=== PATIENT | male | born 1940 | race Caucasian/White ===

== ENCOUNTER 2018-12-02 11:06 | Inpatient (IN) | payer BC, MEDICARE ==
[2018-12-02] MEDS ORDERED: ALPRAZolam 0.5 MG TAB PO PRN ×2 (14:13→15:48)
[2018-12-02] MEDS ORDERED: IPRATROPIUM-ALBUTEROL 3 ML NEB INHALATION PRN (14:13)
[2018-12-02 15:31] LABS: Basophils % (A) 1 %; Eosinophils # (A) 0.2 k/uL (0-0.7); Eosinophils % (A) 5 %; HCT 37.3 % (39.0-53.0); HGB 12.4 gm/dL (13.0-17.5); Lymphocytes # (A) 0.6 k/uL (1.0-4.8); Lymphocytes % (A) 16 %; MCH 30.8 pg (25.0-35.0); MCHC 33.3 g/dL (31.0-37.0); MCV 92.4 fL (80.0-100.0); Monocytes # (A) 0.2 k/uL (0-1.0); Monocytes % (A) 6 %; Neutrophils # (A) 2.9 k/uL (1.3-7.7); Neutrophils % (A) 71 %; Platelet Count 181 k/uL (150-450); RBC 4.03 m/uL (4.30-5.90); RDW 13.4 % (11.5-15.5); WBC 4.1 k/uL (3.8-10.6)
[2018-12-02] MEDS: ASPIRIN 81 MG PO SCH (15:37)
[2018-12-02] MEDS: LOSARTAN 25 MG TAB PO SCH (15:37)
[2018-12-02] MEDS: NITROGLYCERIN OINT 1 INCH/GM PACKET TOPICAL SCH ×2 (15:37→23:31)
[2018-12-02] MEDS: CITALOPRAM HYDROBROMIDE 10 MG TAB PO SCH (15:37)
[2018-12-02] MEDS: FUROSEMIDE 40 MG TAB PO SCH (15:37)
[2018-12-02 15:39] LABS: Calcium 9.8 mg/dL (8.4-10.2); Magnesium 1.7 mg/dL (1.6-2.3); Potassium 3.7 mmol/L (3.5-5.1)
--- NOTE | 2018-12-02 15:39 | P.CRDCN ---
History of Present Illness Consult date: 12/02/18 Requesting physician: Olga Iraheta Consult reason: chest pain Chief complaint: Chest pain History of present illness: This is a pleasant 78-year-old gentleman who follows regularly with Dr. Coulter in the office. He has a known history of coronary artery disease with prior stent placement, hypertension, hyperlipidemia, COPD, history of prior prostate cancer. Most recent cardiac catheterization was performed in 2017 which revealed moderate disease in the proximal LAD, no significant hemodynamically obstructive lesion in the proximal LAD by FFR performed at that time. He was also found to have mild to moderate disease in the circumflex and right coronary artery stent was patent at that time. Patient presented to [facility] with symptoms of left-sided chest discomfort which she describes as an ache in his chest. He does get some mild associated nausea with this, he states that the symptoms, and go. Each time lasting approximately 10 minutes in duration. He had 2 troponins drawn at [facility] which came back to be normal. For this reason was advised to undergo stress test. He did have Nitropaste applied on arrival there which she states helped relieve the symptoms. The Nitropaste was then removed prior to going to stress test and patient again develop symptoms. For this reason the stress test was canceled. They did make a phone call at that time to Dr. Coulter who recommended that the patient be transferred here for further evaluation and treatment. We do not have a copy of the EKG performed at [facility]. We will obtain an EKG here. Upon arrival here, patient did have one episode of chest discomfort, at the time of my examination he is currently chest pain-free. Blood pressure at [facility] 153/62 with a heart rate in the 50s 98% on room air. His white blood cell count was 4.4, hemoglobin 12.3, platelets 187. BUN 17, creatinine 1.3, sodium 141, potassium 3.4, magnesium 1.1 and CO2 27. Chest x-ray showed chronic changes without evidence of acute pulmonary disease. Blood pressure here 145/60 with a heart rate in the 70s, 93% on room air. Past Medical History Past Medical History: Coronary Artery Disease (CAD), Cancer, Chest Pain / Angina , COPD, Diabetes Mellitus, Hyperlipidemia, Myocardial Infarction ([place]) Additional Past Medical History / Comment(s): Prostate cancer with hormone tx/ radiation, L testicular cancer with surgery, NIDDM type II, neuropathy bilateral feet and starting in bilateral hands, vertigo, possible elevated uric acid levels. Last Myocardial Infarction Date:: 10/17/14 History of Any Multi-Drug Resistant Organisms: None Reported Past Surgical History: Heart Catheterization With Stent, Orthopedic Surgery Additional Past Surgical History / Comment(s): 2014 PCI with stent, 2016 cardiac cath treated medically, L orchiectomy, L rotator cuff repair, colonoscopies-3 in past year d/t multiple polyps-all bening, bilateral cataract removal. Past Anesthesia/Blood Transfusion Reactions: No Reported Reaction Date of Last Stent Placement:: 10/18/14 Past Psychological History: No Psychological Hx Reported Additional Psychological History / Comment(s): Pt resides with his spouse of 30 yrs. He is independent. He has a glucometer and a nebulizer. Smoking Status: Former smoker Past Alcohol Use History: Occasional Additional Past Alcohol Use History / Comment(s): Pt started smoking in 1956 and quit in 1990. He states he drinks alcohol sometimes on a daily basis. He states some weeks he may go over 14 drinks. Past Drug Use History: None Reported - Past Family History Brother(s) Family Medical History: Cancer Son(s) Family Medical History: Cancer Additional Family Medical History / Comment(s): Lung Ca and Brain tumor Mother Family Medical History: Dementia Father Family Medical History: Cancer, Dementia Additional Family Medical History / Comment(s): Father had lung cancer. He in his 80s. He was a smoker. Medications and Allergies Home Medications Medication Instructions Recorded Confirmed Type ALPRAZolam [Xanax] 0.5 mg PO BID PRN 07/14/17 12/02/18 History Aspirin 81 mg PO DAILY 07/14/17 12/02/18 History Atorvastatin [Lipitor] 80 mg PO HS 07/14/17 12/02/18 History Budesonide-Formot 160-4.5 Mcg 2 puff INHALATION RT-BID 07/14/17 12/02/18 History [Symbicort 160-4.5 Mcg Inhaler] Ipratropium-Albuterol Nebulize 3 ml INHALATION RT-Q4H PRN 07/14/17 12/02/18 History [Duoneb 0.5 mg-3 mg/3 ml Soln] Losartan Potassium [Cozaar] 25 mg PO DAILY 10/01/17 02/19/19 History Metoprolol Tartrate [Lopressor] 12.5 mg PO BID 07/14/17 12/02/18 History Omeprazole [PriLOSEC] 20 mg PO DAILY 07/14/17 12/02/18 History metFORMIN HCL [Glucophage] 500 mg PO BID 07/14/17 12/02/18 History Allopurinol [Zyloprim] 100 mg PO DAILY 12/02/18 12/02/18 History Citalopram Hydrobromide 10 mg PO DAILY 12/02/18 12/02/18 History [Citalopram HBr] Furosemide [Lasix] 40 mg PO DAILY 12/02/18 12/02/18 History Glimepiride [Amaryl] 2 mg PO BID 12/02/18 12/02/18 History Allergies Allergy/AdvReac Type Severity Reaction Status Date / Time No Known Allergies Allergy Verified 12/02/18 13:50 Physical Exam Vitals: Vital Signs Temp Pulse Resp BP Pulse Ox 12/02/18 15:27 72 18 12/02/18 15: 96.5 F L 72 18 145/66 93 L 12/02/18 12:40 97.0 F L 62 18 172/79 96 Intake and Output 12/02/18 12/02/18 12/02/18 06:59 14:59 22:59 Other: Weight 97.5 kg PHYSICAL EXAMINATION: GENERAL: 78-year-old gentleman in no acute distress at the time of my examination HEENT: Head is atraumatic, normocephalic. Pupils equal, round. Sclera anicteric. Conjunctiva are clear. Mucous membranes of the mouth are moist. Neck is supple. There is no elevated jugular venous pressure. No carotid bruit is heard. HEART EXAMINATION: Heart S1, S2 normal. No murmur or gallop heard. CHEST EXAMINATION: Lungs are clear to auscultation and precussion. No chest wall tenderness is noted on palpation or with deep breathing. ABDOMEN: Soft, nontender. Bowel sounds are heard. No organomegaly noted. EXTREMITIES: 2+ peripheral pulses with no evidence of peripheral edema and no calf tenderness noted. NEUROLOGIC patient is awake, alert and oriented 3 . . Results 12/02/18 15:11 12/02/18 15:11 Current Medications Generic Name Dose Route Start Last Admin Trade Name Freq PRN Reason Stop Dose Admin Albuterol/Ipratropium 3 ml 12/02/18 14:13 Duoneb 0.5 Mg-3 Mg/3 Ml Soln INHALATION RT-Q4H PRN Shortness Of Breath Or Wheezing Allopurinol 100 mg 12/03/18 09:00 Zyloprim PO DAILY [facility] Alprazolam 0.5 mg 12/02/18 14:13 Xanax PO BID PRN Anxiety Aspirin 81 mg 12/02/18 14:30 Aspirin PO DAILY [facility] Atorvastatin Calcium 80 mg 12/02/18 21:00 Lipitor PO HS [facility] Budesonide/Formoterol Fumarate 2 puff 12/02/18 20:00 Symbicort 160-4.5 Mcg Inhaler INHALATION RT-BID [facility] Citalopram Hydrobromide 10 mg 12/02/18 14:30 Celexa PO DAILY [facility] Furosemide 40 mg 12/02/18 14:30 Lasix PO DAILY [facility] Glimepiride 2 mg 12/02/18 21:00 Amaryl PO BID [facility] Losartan Potassium 25 mg 12/02/18 14:30 Cozaar PO DAILY [facility] Metformin HCl 500 mg 12/02/18 21:00 Glucophage PO BID [facility] Metoprolol Tartrate 12.5 mg 12/02/18 21:00 Lopressor PO BID [facility] Nitroglycerin 1 inch 12/02/18 16:00 Nitro-Bid Oint TOPICAL Q6HR [facility] Pantoprazole Sodium 40 mg 12/03/18 07:30 Protonix PO AC-BRKFST [facility] Intake and Output 12/02/18 12/02/18 12/02/18 06:59 14:59 22:59 Other: Weight 97.5 kg Patient Weight 12/03/18 06:59 Weight 97.5 kg EKG Interpretations (text) EKG that was performed here shows normal sinus rhythm with anterior lateral ST- T wave changes noted. New changes as compared with EKG in 2017. Assessment and Plan Plan: Assessment and plan #1 symptoms of chest discomfort with associated mild nausea, troponins 2 at [facility] have been negative. EKG performed here shows normal sinus rhythm with ST depression and ST-T wave changes in the anterior lateral leads from prior EKG. #2 known history of coronary artery disease with prior stenting of the right coronary artery in 2015, cardiac cath performed in 2017 revealed moderate disease in the proximal LAD, not significant by FFR, mild to moderate disease in the circumflex, RCA prior stented area patent. #3 hypertension #4 hyperlipidemia #5COPD #6 history of prostate cancer #7 hypomagnesemia Plan We will obtain an EKG here as well as record of one of [facility]. Obtain echocardiogram with Doppler study and resume the patient's home medications. Obtain a third troponin value. Patient has been advised to undergo cardiac catheterization, the risks and benefits were explained to the patient in detail and he is willing to proceed. This will be performed tomorrow by Dr. Coulter. Further recommendations will be based on these findings and the patient's clinical course. DNP note has been reviewed, I agree with a documented findings and plan of care. Patient was seen and examined.
[2018-12-02] MEDS ORDERED: SODIUM CHLORIDE 0.9% 1,000 ML in EMPTY BAG 1 BAG IV ONE (15:48)
[2018-12-02] MEDS ORDERED: ALPRAZolam 0.25 MG TAB PO PRN (15:48)
[2018-12-02] MEDS ORDERED: NITROGLYCERIN SL TABS 0.4 MG TAB SUBLINGUAL PRN (15:48)
[2018-12-02] MEDS ORDERED: HEPARIN SODIUM,PORCINE 5,000 UNIT/ML 1 ML VIAL IV ONE (15:54)
[2018-12-02] MEDS ORDERED: HEPARIN SODIUM,PORCINE 5,000 UNIT/ML 1 ML VIAL IV PRN (15:54)
[2018-12-02] MEDS ORDERED: HEPARIN SOD,PORK IN 0.45% NACL 25,000 UNIT in 0.45% NACL 1 250ML.BAG IV SCH (16:00)
[2018-12-02 17:01] LABS: Basophils % (A) 1 %; Eosinophils # (A) 0.2 k/uL (0-0.7); Eosinophils % (A) 4 %; HCT 35.8 % (39.0-53.0); Lymphocytes # (A) 0.8 k/uL (1.0-4.8); Lymphocytes % (A) 18 %; MCH 30.9 pg (25.0-35.0); MCHC 33.5 g/dL (31.0-37.0); MCV 92.3 fL (80.0-100.0); Mean Platelet Volume 6.3; Monocytes # (A) 0.3 k/uL (0-1.0); Monocytes % (A) 8 %; Neutrophils # (A) 2.9 k/uL (1.3-7.7); Neutrophils % (A) 68 %; Platelet Count 170 k/uL (150-450); RBC 3.88 m/uL (4.30-5.90); RDW 13.5 % (11.5-15.5); WBC 4.3 k/uL (3.8-10.6)
[2018-12-02] MEDS ORDERED: ONDANSETRON 4 MG/2 ML VIAL IVP PRN (17:05)
[2018-12-02] MEDS ORDERED: NALOXONE 0.4 MG/ML 1 ML VIAL IV PRN (17:05)
[2018-12-02 17:09] LABS: Glucose,Whole Blood 131 mg/dL (75-99)
[2018-12-02 17:12] LABS: INR 0.9 (<1.2); Partial Thromboplastin Time 22.8 sec (22.0-30.0); Prothrombin Time 10.1 sec (9.0-12.0)
--- NOTE | 2018-12-02 17:21 | P.HPIM ---
History of Present Illness H&P Date: 12/02/18 Chief Complaint: Chest pain Patient is a 78-year-old male past medical history of prior myocardial infarction with 1 stent, hypertension, dyslipidemia, diabetes mellitus, and COPD who was transferred from [facility] secondary to chest pain. Patient had been having chest pain for 2 days and presented to [facility]. There he was found have an EKG that was nonischemic and negative troponins. He had Nitropaste placed which took away his chest pain. He states that when this was removed his chest pain came back. He was subsequently transferred here for further cardiac evaluation. Laboratory analysis there revealed white blood cell count of 4.43, hemoglobin 12.3, platelets 187, BUN 17 , creatinine 131, sodium 141, potassium 3.4, magnesium 1.1. Chest x-ray reveals chronic COPD but no other changes. Patient seen and examined at bedside. He reports that for 2 days prior to admission he was having intermittent chest pain. He described it as an irritating pressure associated with nausea and severe diaphoresis. He also noted tingling in his fingers. He denies any increased shortness of breath occurring with this. He states it has been occurring both at rest and with exertion. He hasn't had anything significant in the past. He reports a decreased appetite over the last 2-3 weeks resulting in a 20 pound weight loss. He has noticed increased restlessness in his legs at night and having a hard time sleeping. Approximately 6 months ago he started having some lower extremity edema and was put on Lasix by his linux vmware administrator. He denies any recent cough, cold, fever, flu, nausea, vomiting, or diarrhea. Review of Systems Pertinent positives and negatives as discussed in HPI, a complete review of systems was performed and all other systems are negative. Past Medical History Past Medical History: Coronary Artery Disease (CAD), Cancer, Chest Pain / Angina , COPD, Diabetes Mellitus, Hyperlipidemia, Myocardial Infarction ([place]) Additional Past Medical History / Comment(s): Prostate cancer with hormone tx/ radiation, L testicular cancer with radiation/surgery, NIDDM type II, neuropathy bilateral feet and starting in bilateral hands, vertigo, Gout. Last Myocardial Infarction Date:: 10/17/14 History of Any Multi-Drug Resistant Organisms: None Reported Past Surgical History: Heart Catheterization With Stent, Orthopedic Surgery Additional Past Surgical History / Comment(s): 2014 PCI with stent, 2016 cardiac cath treated medically, L orchiectomy, L rotator cuff repair, colonoscopies-3 in past year d/t multiple polyps-all bening, bilateral cataract removal. Past Anesthesia/Blood Transfusion Reactions: No Reported Reaction Date of Last Stent Placement:: 10/18/14 Past Psychological History: No Psychological Hx Reported Additional Psychological History / Comment(s): Pt resides with his spouse of 30 yrs. He is independent. He has a glucometer and a nebulizer. Smoking Status: Former smoker Past Alcohol Use History: Occasional Additional Past Alcohol Use History / Comment(s): Pt started smoking in 1956 and quit in 1990. He states he drinks alcohol sometimes on a daily basis. He states some weeks he may go over 14 drinks. Past Drug Use History: None Reported Additional History: Has not had any alcohol in 2 weeks. Lives with . No assistive devices. + Nebulizer at home. - Past Family History Brother(s) Family Medical History: Cancer Son(s) Family Medical History: Cancer Additional Family Medical History / Comment(s): Lung Ca and Brain tumor Mother Family Medical History: Dementia Father Family Medical History: Cancer, Dementia Additional Family Medical History / Comment(s): Father had lung cancer. He in his 80s. He was a smoker. Medications and Allergies Home Medications Medication Instructions Recorded Confirmed Type ALPRAZolam [Xanax] 0.5 mg PO BID PRN 07/14/17 12/02/18 History Aspirin 81 mg PO DAILY 07/14/17 12/02/18 History Atorvastatin [Lipitor] 80 mg PO HS 07/14/17 12/02/18 History Losartan Potassium [Cozaar] 25 mg PO DAILY 07/14/17 12/02/18 History Metoprolol Tartrate [Lopressor] 12.5 mg PO BID 07/14/17 12/02/18 History Omeprazole [PriLOSEC] 20 mg PO DAILY 07/14/17 12/02/18 History metFORMIN HCL [Glucophage] 500 mg PO BID 07/14/17 12/02/18 History Allopurinol [Zyloprim] 100 mg PO DAILY 12/02/18 12/02/18 History Budesonide [Pulmicort] 0.5 mg INHALATION BID 12/02/18 12/02/18 History Citalopram Hydrobromide 10 mg PO DAILY 12/02/18 12/02/18 History [Citalopram HBr] Formoterol Fumarate [Perforomist] 20 mcg INHALATION BID 12/02/18 12/02/18 History Furosemide [Lasix] 40 mg PO DAILY 12/02/18 12/02/18 History Glimepiride [Amaryl] 2 mg PO BID 12/02/18 12/02/18 History Allergies Allergy/AdvReac Type Severity Reaction Status Date / Time No Known Allergies Allergy Verified 12/02/18 13:50 Physical Exam Osteopathic Statement: *. No significant issues noted on an osteopathic structural exam other than those noted in the History and Physical/Consult. Vitals: Vital Signs Temp Pulse Pulse Resp BP Pulse Ox 12/02/18 16:17 72 12/02/18 16:11 72 12/02/18 15:27 72 18 12/02/18 15:19 96.5 F L 72 18 145/66 93 L 12/02/18 12:40 97.0 F L 62 18 172/79 96 Intake and Output 12/02/18 12/02/18 12/02/18 06:59 14:59 22:59 Other: Weight 97.5 kg 97.5 kg General: non toxic, no distress, appears at stated age, normal weight Derm: no unusual rashes/lesions no unusual ecchymoses, warm, dry Head: atraumatic, normocephalic, symmetric Eyes: EOMI, no lid lag, anicteric sclera, pupils equal round reactive to light ENT: Nose and ears atraumatic, no thrush, no pharyngeal erythema Neck: No thyromegaly, no cervical lymphadenopathy, trachea midline, supple Mouth: no lip lesion, mucus membranes moist Cardiovascular: S1S2 reg, no murmur, positive posterior tibial pulse bilateral, no edema, capillary refill less than 2 seconds Lungs: CTA bilateral, no rhonchi, no rales , no accessory muscle use Abdominal: soft, nontender to palpation, no guarding, no appreciable organomegaly, normal bowel sounds Ext: no gross muscle atrophy, muscle strength 5 out of 5 in all 4 extremities grossly, no contractures, Neuro: CN II-XI grossly intact, light touch intact all 4 extremities, finger to nose within normal limits, Psych: Alert, oriented, appropriate affect Results CBC & Chem 7: 12/02/18 16:36 12/02/18 15:11 Labs: Abnormal Lab Results - Last 24 Hours (Table) 12/02/18 12/02/18 12/02/18 Range/Units 15:11 15:11 16:36 RBC 4.03 L 3.88 L (4.30-5.90) m/uL Hgb 12.4 L 12.0 L (13.0-17.5) gm/dL Hct 37.3 L 35.8 L (39.0-53.0) % Lymphocytes # 0.6 L 0.8 L (1.0-4.8) k/uL Glucose 149 H (74-99) mg/dL Comments: EKG is reviewed by myself reveals normal sinus rhythm at a rate of 72 with T- wave inversion in lead V1 through V6 consistent with possible anterior ischemia. Chest x-ray: report reviewed Thrombosis Risk Factor Assmnt - DVT/VTE Prophylaxis DVT/VTE Prophylaxis: Pharmacologic Prophylaxis ordered - Choose All That Apply Any of the Below Risk Factors Present?: Yes Each Factor Represents 1 point: Abnormal pulmonary function (COPD), Obesity ( BMI >25) Other Risk Factors: Yes Each Risk Factor Represents 2 Points: Malignancy Each Risk Factor Represents 3 Points: Age 75 years or older Other congenital or acquired thrombophilia - If yes, enter type in comment: No Thrombosis Risk Factor Assessment Total Risk Factor Score: 7 Thrombosis Risk Factor Assessment Level: High Risk Assessment and Plan Assessment: Chest pain with concerns for acute coronary syndrome and history of coronary artery disease -Check one additional troponin -Telemetry -On heparin drip -Cardiology recommendations -Nothing by mouth after midnight -Continue with aspirin, Lipitor, and beta colette Diabetes mellitus type 2, [id number] associated with neuropathy -Hold metformin and glimepiride -Sliding-scale insulin -Check hemoglobin A1c Restless leg syndrome -Check ferritin level -Outpatient follow-up Hypomagnesemia -Replaced at [facility] -Recheck Hypertension, controlled -Continue with beta colette, ARB, and Lasix -Follow blood pressures COPD without exacerbation -Continue with budesonide and Pulmicort -As needed albuterol inhalers -Follows with Dr. Meade for pulmonary The patient is admitted with an anticipated greater than 2 midnight stay for evaluation of chest pain. Surrogate decision-maker: CODE STATUS: Full DVT prophylaxis: heparin drip Discussed with: Patient, nursing Anticipated discharge date: 2-[address]: Home A total of 5 minutes was spent on the care of this complex patient more than 50 % of the time was spent in counseling and care coordination.
[2018-12-02] MEDS: INSULIN ASPART (NovoLOG) 100 UNIT/ML VIAL SQ SCH ×2 (18:15→21:50)
[2018-12-02] MEDS: METOPROLOL TARTRATE 12.5 MG TAB PO SCH (19:37)
[2018-12-02] MEDS: ATORVASTATIN 80 MG TAB PO SCH (19:37)
[2018-12-02] MEDS: ALBUTEROL NEBULIZED 2.5 MG/3 ML INHALATION PRN (19:47)
[2018-12-02] MEDS: BUDESONIDE 0.5 MG/2 ML NEBU INHALATION SCH (19:47)
[2018-12-02] MEDS ORDERED: SYMBICORT 160-4.5 MCG INHALER INHALATION SCH (20:00)
[2018-12-02] MEDS: FORMOTEROL FUMARATE 20 MCG/2 ML NEBU INHALATION SCH (20:01)
[2018-12-02] MEDS ORDERED: metFORMIN 500 MG TAB PO SCH (21:00)
[2018-12-02] MEDS ORDERED: GLIMEPIRIDE 2 MG TAB PO SCH (21:00)
[2018-12-02 21:31] LABS: Glucose,Whole Blood 124 mg/dL (75-99)
[2018-12-03 01:23] LABS: Hemoglobin A1C 7.3 % (4.0-6.0)
[2018-12-03] MEDS ORDERED: ATORVASTATIN 80 MG TAB PO ONE (06:00)
[2018-12-03] MEDS ORDERED: ASPIRIN 325 MG TAB PO ONE (06:00)
[2018-12-03 06:13] LABS: Glucose,Whole Blood 161 mg/dL (75-99)
[2018-12-03 06:18] LABS: Basophils % (A) 1 %; Eosinophils # (A) 0.2 k/uL (0-0.7); Eosinophils % (A) 4 %; HCT 35.9 % (39.0-53.0); HGB 11.7 gm/dL (13.0-17.5); Lymphocytes # (A) 0.7 k/uL (1.0-4.8); Lymphocytes % (A) 19 %; MCH 30.7 pg (25.0-35.0); MCHC 32.7 g/dL (31.0-37.0); Mean Platelet Volume 6.7; Monocytes # (A) 0.3 k/uL (0-1.0); Monocytes % (A) 8 %; Neutrophils # (A) 2.5 k/uL (1.3-7.7); Neutrophils % (A) 65 %; Platelet Count 160 k/uL (150-450); RBC 3.82 m/uL (4.30-5.90); RDW 13.5 % (11.5-15.5); WBC 3.9 k/uL (3.8-10.6)
[2018-12-03 06:29] LABS: Calcium 9.4 mg/dL (8.4-10.2); Magnesium 1.7 mg/dL (1.6-2.3); Potassium 3.9 mmol/L (3.5-5.1)
[2018-12-03] MEDS: ALLOPURINOL 100 MG TAB PO SCH (06:39)
[2018-12-03] MEDS: LOSARTAN 25 MG TAB PO SCH (06:40)
[2018-12-03] MEDS: PANTOPRAZOLE 40 MG TABLET PO SCH (06:40)
[2018-12-03] MEDS: METOPROLOL TARTRATE 12.5 MG TAB PO SCH ×2 (06:40→19:48)
[2018-12-03] MEDS: NITROGLYCERIN OINT 1 INCH/GM PACKET TOPICAL SCH ×2 (06:41→12:20)
[2018-12-03] MEDS: INSULIN ASPART (NovoLOG) 100 UNIT/ML VIAL SQ SCH ×4 (06:41→21:16)
[2018-12-03] MEDS: ASPIRIN 81 MG PO SCH (07:34)
[2018-12-03] MEDS: BUDESONIDE 0.5 MG/2 ML NEBU INHALATION SCH ×2 (07:47→20:00)
[2018-12-03] MEDS: ALBUTEROL NEBULIZED 2.5 MG/3 ML INHALATION PRN ×3 (07:47→20:00)
[2018-12-03] MEDS: FORMOTEROL FUMARATE 20 MCG/2 ML NEBU INHALATION SCH ×2 (07:47→20:00)
[2018-12-03] MEDS: CITALOPRAM HYDROBROMIDE 10 MG TAB PO SCH (10:09)
[2018-12-03 11:06] LABS: Iron Saturation 12.16 (15.00-50.00)
[2018-12-03 11:54] LABS: Glucose,Whole Blood 128 mg/dL (75-99)
[2018-12-03] MEDS ORDERED: VERAPAMIL 2.5 MG/ML 2 ML AMP ONE (13:03)
[2018-12-03] MEDS ORDERED: LIDOCAINE 1% INJ 10MG/ML (20 ML MDV) ONE (13:03)
[2018-12-03] MEDS ORDERED: HEPARIN SODIUM 1,000 UN/ML (10ML VL) ONE (13:03)
[2018-12-03] MEDS ORDERED: fentaNYL (PF) 50 MCG/ML 2 ML AMP ONE (13:03)
[2018-12-03] MEDS ORDERED: IV FLUID CONTINUATION 200 ML IV ONE (13:08)
[2018-12-03] MEDS ORDERED: LIDOCAINE 1% INJ 10MG/ML (20 ML MDV) SQ ONE (13:17)
[2018-12-03] MEDS ORDERED: MIDAZOLAM 2 MG/2 ML VIAL IVP ONE (13:18)
[2018-12-03] MEDS ORDERED: fentaNYL (PF) 50 MCG/ML 2 ML AMP IVP ONE (13:18)
[2018-12-03] MEDS ORDERED: VERAPAMIL SYRINGE (5 MG/10 ML) INTRAARTER ONE (13:23)
[2018-12-03] MEDS ORDERED: IOPAMIDOL-370 150ML BTL INJ ONE (13:34)
[2018-12-03] MEDS ORDERED: HEPARIN SODIUM 1,000 UN/ML (10ML VL) IV ONE (13:34)
[2018-12-03] MEDS ORDERED: RX INFO: IV CONTRAST WAS GIVEN 1 EACH MISC MISCELLANE PRN (13:47)
[2018-12-03] MEDS ORDERED: SODIUM CHLORIDE 0.9% 1,000 ML IV SCH (14:00)
--- NOTE | 2018-12-03 14:10 | CC ---
CARDIAC CATHETERIZATION REPORT Mr. Malhotra is a 78-year-old male with known history of coronary artery disease, hypertension, hyperlipidemia, diabetes mellitus, who presented to [facility] with symptoms of chest discomfort with no enzymatic changes but because of the persistent symptoms, he was transferred to [facility] to undergo coronary angiography. The procedures, risks and complications were discussed with the patient who is in full understanding and agreement. PROCEDURE: Patient was brought to labor contractor in a fasting semi-sedated state after receiving fentanyl and Benadryl and achieving moderate conscious sedated state. Using Xylocaine anesthesia and Seldinger technique, a 6-Palauan sheath was introduced in the right radial artery. Selective right and left coronary angiography was performed using 5- Palauan 3.5 bend right and left Rfai catheter, multiple views of the coronary artery including hemiaxial views obtained. Following that, a 5-Palauan tight pigtail catheter was introduced in the left ventricle and a 30 degree BANGURA view of the left ventricle was obtained. Following that, catheter and sheaths were removed. Hemostasis was obtained with deployment of a TR band. There was no immediate complication. Patient is returned to his room in stable condition. FINDINGS: LEFT MAIN: This is a large-sized vessel, bifurcating into left circumflex, left anterior descending artery. Left main coronary artery has no evidence of high-grade stenosis. LEFT ANTERIOR DESCENDING ARTERY: This is a large-sized vessel, reaching toward the apex with a wraparound apex segment, giving rise to a small to moderate diagonal branch in the mid segment. The left anterior descending artery proximally has an area of stenosis up to 40% to 50% There is another plaque of 30% - 40% at the takeoff of the diagonal branch. The rest of the vessel has no high-grade stenosis. LEFT CIRCUMFLEX: This is a nondominant vessel giving rise to a large obtuse marginal branch. The left circumflex has a 20% to 30% proximally without any evidence of high- grade stenosis. RIGHT CORONARY ARTERY: This is a large dominant vessel, bifurcating into PDA and posterolateral segment and branches. The right coronary artery proximal to the stent has a 20% to 30% plaque. The stented segment is patent without any evidence of progression of disease. LEFT VENTRICULOGRAM: Left ventriculogram is performed in the 30 degree BANGURA view and revealed inferobasal hypokinesis. The ejection fraction was estimated at 50%. There was no significant mitral regurgitation. HEMODYNAMICS: There was no gradient across the aortic valve. The left ventricular end- diastolic pressure was 12 to 14 mmHg. CONCLUSION: 1. Mild to moderate triple-vessel coronary artery disease. 2. Mildly impaired left ventricular systolic function. RECOMMENDATION: Those finding are similar to what was noted in July 2017 and at that time, he underwent FFR of a LAD that showed no evidence of significant disease and based on those findings, I recommend continue medical therapy with aggressive risk factor modifications being initiated. Those findings and recommendation were discussed with the patient and he is full understanding and agreement. Duration of procedure is 23 minutes. MMODL / IJN: [id number] /
[2018-12-03] MEDS: ISOSORBIDE MONONITRATE ER 30 MG TAB.ER.24H PO SCH (14:21)
--- NOTE | 2018-12-03 15:11 | ECHOF ---
Referral Reason:chest pain MEASUREMENTS -------- HEIGHT: 182.9 cm WEIGHT: 97.1 kg BP: 172/79 RVIDd: 3.1 cm (< 3.3) IVSd: 1.0 cm (0.6 - 1.1) LVIDd: 3.9 cm (3.9 - 5.3) LVPWd: 0.9 cm (0.6 - 1.1) IVSs: 1.4 cm LVIDs: 1.9 cm LVPWs: 1.4 cm MV E Fady: 0.64 m/s MV DecT: 383 ms MV A Fady: 0.76 m/s MV E/A Ratio: 0.84 AV maxP.95 mmHg AV meanP.02 mmHg RAP: 5.00 mmHg RVSP: 12.60 mmHg FINDINGS -------- Sinus rhythm. This was a technically difficult study with suboptimal views. The left ventricular size is normal. Left ventricular wall thickness is normal. Overall left vent ricular systolic function is normal with, an EF between 55 - 60 %. The right ventricle is mildly enlarged. The left atrium was not well visualized. RA appears enlarged. 3 ml Lumason used There is mild aortic valve sclerosis. Trace amount of aortic regurgitation. There is no evidence of aortic stenosis. The mitral valve leaflets are mildly thickened. There is trace to mild mitral regurgitation. Trace tricuspid regurgitation present. Right ventricular systolic pressure is normal at < 35 mmHg. There is no evidence of pulmonary hypertension. The pulmonic valve was not well visualized. The aortic root size is normal. IVC Not well visulized. Moderate Pleural Effusion. CONCLUSIONS -------- 1. Sinus rhythm. 2. This was a technically difficult study with suboptimal views. 3. The left ventricular size is normal. 4. Left ventricular wall thickness is normal. 5. Overall left ventricular systolic function is normal with, an EF between 55 - 60 %. 6. The right ventricle is mildly enlarged. 7. The left atrium was not well visualized. 8. RA appears enlarged. 9. 3 ml Lumason used 10. There is mild aortic valve sclerosis. 11. Trace amount of aortic regurgitation. 12. There is no evidence of aortic stenosis. 13. The mitral valve leaflets are mildly thickened. 14. There is trace to mild mitral regurgitation. 15. Trace tricuspid regurgitation present. 16. Right ventricular systolic pressure is normal at < 35 mmHg. 17. There is no evidence of pulmonary hypertension. 18. The pulmonic valve was not well visualized. 19. The aortic root size is normal. 20. IVC Not well visulized. 21. Moderate Pleural Effusion. PLANNING ENGINEER: Bradford Padilla RDCS
[2018-12-03] MEDS: FUROSEMIDE 40 MG TAB PO SCH (16:44)
[2018-12-03 17:07] LABS: Glucose,Whole Blood 159 mg/dL (75-99)
[2018-12-03] MEDS: FERROUS SULFATE 325 MG TAB PO SCH (17:39)
--- NOTE | 2018-12-03 17:56 | P.PN ---
Subjective Progress Note Date: 12/03/18 Principal diagnosis: chest pain Patient is a 78-year-old male past medical history of prior myocardial infarction with 1 stent, hypertension, dyslipidemia, diabetes mellitus, and COPD who was transferred from [facility] secondary to chest pain. Patient had been having chest pain for 2 days and presented to [facility]. There he was found have an EKG that was nonischemic and negative troponins. He had Nitropaste placed which took away his chest pain. He states that when this was removed his chest pain came back. He was subsequently transferred here for further cardiac evaluation. Laboratory analysis there revealed white blood cell count of 4.43, hemoglobin 12.3, platelets 187, BUN 17 , creatinine 131, sodium 141, potassium 3.4, magnesium 1.1. Chest x-ray reveals chronic COPD but no other changes. Urinary catheterization on 12/03. She was consistent with his prior In 2016 and did not need any immediate intervention. He was put on Imdur for possible angina. He did come back to the floor having chest pain that was relieved with Imdur use. Patient seen and examined at bedside. He reports no change in shortness of breath. He is chronically when up and ambulating but sees Dr. Meade for his COPD. He reports no issues of acid reflux and already takes protonix. He reports that his abdominal pain is not associated with eating. He reports that he does snore at night and wakes himself up from snoring. He has been waking up drenched in sweat. He has been overall feeling fatigued and having low energy. He has a history of low testosterone but is not a candidate for testosterone replacement in the future as he has a history of prostate cancer. Currently chest pain-free but has not gotten up and ambulated yet. Objective - Vital Signs Vital signs: Vital Signs Temp 97.7 F 12/03/18 12:23 Pulse 70 12/03/18 16:40 Resp 18 12/03/18 16:40 BP 121/70 12/03/18 16:40 Pulse Ox 94 L 12/03/18 16:40 Intake & Output 12/02/18 12/03/18 12/03/18 18:59 06:59 18:59 Intake Total 240 525.461 200 Balance 240 525.461 200 Weight 97.5 kg 98.8 kg Intake: IV 100 Intake, IV Titration 125.461 Amount Heparin Sod,Pork in 0.45% 125.461 NaCl 25,000 unit In 0.45 % NaCl 1 250ml.bag @ 10.3 UNITS/KG/HR 10.04 mls/hr IV .Q24H [facility] Rx#: [id number] Oral 240 400 100 Other: Voiding Method Toilet # Voids 2 1 - Exam General: non toxic, no distress, appears at stated age Derm: warm, dry Head: atraumatic, normocephalic, symmetric Eyes: EOMI, no lid lag, anicteric sclera Mouth: no lip lesion, mucus membranes moist Cardiovascular: S1S2 reg, no murmur, positive posterior tibial pulse bilateral, Lungs: CTA bilateral, no rhonchi, no rales , no accessory muscle use Abdominal: soft, nontender to palpation, no guarding, no appreciable organomegaly Ext: no gross muscle atrophy, no edema, no contractures Neuro: CN II-XI grossly intact, no focal neuro deficits Psych: Alert, oriented, appropriate affect - Labs CBC & Chem 7: 12/03/18 05:35 12/03/18 05:35 Labs: Abnormal Lab Results - Last 24 Hours (Table) 12/02/18 12/02/18 12/03/18 Range/Units 17:07 21:28 05:35 RBC (4.30-5.90) m/uL Hgb (13.0-17.5) gm/dL Hct (39.0-53.0) % Lymphocytes # (1.0-4.8) k/uL APTT (22.0-30.0) sec Chloride (98-107) mmol/L BUN (9-20) mg/dL Glucose (74-99) mg/dL POC Glucose (mg/dL) 124 H (75-99) mg/dL Hemoglobin A1c 7.3 H (4.0-6.0) % Iron 36 L (65-175) ug/dL Iron Saturation 12.16 L (15.00-50.00) 12/03/18 12/03/18 12/03/18 Range/Units 05:35 05:35 05:35 RBC 3.82 L (4.30-5.90) m/uL Hgb 11.7 L (13.0-17.5) gm/dL Hct 35.9 L (39.0-53.0) % Lymphocytes # 0.7 L (1.0-4.8) k/uL APTT 48.8 H (22.0-30.0) sec Chloride 109 H (98-107) mmol/L BUN 23 H (9-20) mg/dL Glucose 131 H (74-99) mg/dL POC Glucose (mg/dL) (75-99) mg/dL Hemoglobin A1c (4.0-6.0) % Iron (65-175) ug/dL Iron Saturation (15.00-50.00) 12/03/18 12/03/18 12/03/18 Range/Units 06:11 11:39 16:46 RBC (4.30-5.90) m/uL Hgb (13.0-17.5) gm/dL Hct (39.0-53.0) % Lymphocytes # (1.0-4.8) k/uL APTT (22.0-30.0) sec Chloride (98-107) mmol/L BUN (9-20) mg/dL Glucose (74-99) mg/dL POC Glucose (mg/dL) 161 H 128 H 159 H (75-99) mg/dL Hemoglobin A1c (4.0-6.0) % Iron (65-175) ug/dL Iron Saturation (15.00-50.00) Assessment and Plan Assessment: Chest pain, probable angina -Check gallbladder ultrasound. Patient symptoms not consistent with this but has not been checked in the past. -Cardiac cath was negative -Imdur was added by cardiology -Have patient ambulate in hallways -Continue with aspirin, Lipitor, and beta colette Diabetes mellitus type 2, [id number] associated with neuropathy -Hold metformin and glimepiride -Sliding-scale insulin -Hemoglobin A1c 7.3 Ion deficiency anemia - start oral iron therapy - out patient follow-up with PCP for further testing. Snoring with decreased energy - d/w Dr. Meade and he will see him in the office to arrange a sleep study Hypertension, controlled -Continue with imdur, beta colette, ARB, and Lasix -Follow blood pressures COPD without exacerbation -Continue with budesonide and Pulmicort -As needed albuterol inhalers -Follows with Dr. Meade for pulmonary Hypomagnesemia, resolved DVT prophylaxis: ambulation Discussed with: Patient, nursing Anticipated discharge date: in AM Anticipated discharge place: Home A total of 45 minutes was spent on the care of this complex patient more than 50 % of the time was spent in counseling and care coordination.
[2018-12-03] MEDS: ATORVASTATIN 80 MG TAB PO SCH (19:48)
[2018-12-03 20:53] LABS: Glucose,Whole Blood 125 mg/dL (75-99)
[2018-12-04] MEDS: ACETAMINOPHEN TAB 325 MG TAB PO PRN ×2 (02:39→20:57)
[2018-12-04 06:08] LABS: Basophils % (A) 0 %; Eosinophils # (A) 0.2 k/uL (0-0.7); Eosinophils % (A) 5 %; HCT 31.1 % (39.0-53.0); HGB 10.1 gm/dL (13.0-17.5); Lymphocytes # (A) 0.6 k/uL (1.0-4.8); Lymphocytes % (A) 17 %; MCH 30.6 pg (25.0-35.0); MCHC 32.5 g/dL (31.0-37.0); MCV 93.9 fL (80.0-100.0); Mean Platelet Volume 6.4; Monocytes # (A) 0.3 k/uL (0-1.0); Monocytes % (A) 8 %; Neutrophils # (A) 2.4 k/uL (1.3-7.7); Neutrophils % (A) 67 %; Platelet Count 147 k/uL (150-450); RBC 3.31 m/uL (4.30-5.90); RDW 13.6 % (11.5-15.5); WBC 3.5 k/uL (3.8-10.6)
[2018-12-04 06:13] LABS: Calcium 8.8 mg/dL (8.4-10.2); Potassium 3.8 mmol/L (3.5-5.1)
[2018-12-04 06:16] LABS: Glucose,Whole Blood 151 mg/dL (75-99)
[2018-12-04] MEDS: PANTOPRAZOLE 40 MG TABLET PO SCH (06:50)
[2018-12-04] MEDS: FERROUS SULFATE 325 MG TAB PO SCH ×2 (06:50→17:18)
[2018-12-04] MEDS: INSULIN ASPART (NovoLOG) 100 UNIT/ML VIAL SQ SCH ×4 (06:50→20:58)
[2018-12-04] MEDS: BUDESONIDE 0.5 MG/2 ML NEBU INHALATION SCH ×2 (08:28→21:09)
[2018-12-04] MEDS: FORMOTEROL FUMARATE 20 MCG/2 ML NEBU INHALATION SCH ×2 (08:29→21:09)
[2018-12-04] MEDS: ALBUTEROL NEBULIZED 2.5 MG/3 ML INHALATION PRN ×4 (08:29→21:09)
--- NOTE | 2018-12-04 08:47 | US ---
EXAMINATION TYPE: US gallbladder DATE OF EXAM: 12/04/2018 COMPARISON: NONE CLINICAL HISTORY: abdominal pain. Patient stated had chest pain and epigastric pain x 1 week EXAM MEASUREMENTS: Liver Length: 16.3 cm Gallbladder Wall: 0.2 cm CBD: 0.4 cm Right Kidney: 10.4 x 6.2 x 5.5 cm Pancreas: Mid and Tail obscured by overlying bowel gas Liver: fatty and attenuated posteriorly Gallbladder: wnl Evidence for sonographic Marmolejo's sign: no CBD: wnl Right Kidney: No hydronephrosis or masses seen IMPRESSION: 1. Nonspecific findings of the liver can be seen with fatty infiltration, hepatitis or diffuse hepato cellular disease. 2. Limited assessment of the pancreas due to bowel gas.
[2018-12-04] MEDS: LOSARTAN 25 MG TAB PO SCH (09:13)
[2018-12-04] MEDS: ALLOPURINOL 100 MG TAB PO SCH (09:13)
[2018-12-04] MEDS: FUROSEMIDE 40 MG TAB PO SCH (09:13)
[2018-12-04] MEDS: METOPROLOL TARTRATE 12.5 MG TAB PO SCH ×2 (09:13→20:57)
[2018-12-04] MEDS: ISOSORBIDE MONONITRATE ER 30 MG TAB.ER.24H PO SCH (09:13)
[2018-12-04] MEDS: CITALOPRAM HYDROBROMIDE 10 MG TAB PO SCH (09:13)
[2018-12-04] MEDS: ASPIRIN 81 MG PO SCH (09:14)
--- NOTE | 2018-12-04 11:18 | P.PN ---
Subjective Progress Note Date: 12/04/18 Principal diagnosis: Patient states that he still having left-sided chest pain and shortness of breath states that the shortness of breath get worse when he ambulates in the room Is not complaining of any vomiting Constitutional: No acute distress, conversant, pleasant Eyes: Anicteric sclerae, moist conjunctiva, no lid-lag PERRLA ENMT: NC/AT Oropharynx clear, no erythema, exudates Neck: Supple, FROM, no masses, or JVD No carotid bruits No thyromegaly Lungs: crackly no accessory muscle use Cardiovascular: Heart regular in rate and rhythm, Abdominal: Soft Nontender, no guarding, Skin: Normal temperature, tone, texture, turgor No induration No subcutaneous nodules No rash, lesions No ulcers Extremities: No digital cyanosis No clubbing Pedal pulses intact and symmetrical Radial pulses intact and symmetrical Normal gait and station No calf tenderness Psychiatric:Alert and oriented to person, place and time Appropriate affect Intact judgement Neuro: Generalized weakness Vital Signs - 24 hr 12/03/18 12/03/18 12/03/18 11:29 11:40 12:23 Temperature 97.7 F Pulse Rate 76 76 Pulse Rate [ 62 Pulse Oximetery ] Pulse Rate [ Right Radial] Respiratory 18 Rate Blood Pressure [Left Arm] Blood Pressure 125/67 [Right Arm] O2 Sat by Pulse 94 L Oximetry 12/03/18 12/03/18 12/03/18 13:55 14:10 14:25 Temperature Pulse Rate Pulse Rate [ Pulse Oximetery ] Pulse Rate [ 64 62 62 Right Radial] Respiratory 18 18 Rate Blood Pressure 131/64 122/62 137/77 [Left Arm] Blood Pressure [Right Arm] O2 Sat by Pulse 95 96 Oximetry 12/03/18 12/03/18 12/03/18 14:40 15:10 15:40 Temperature Pulse Rate Pulse Rate [ Pulse Oximetery ] Pulse Rate [ 67 72 Right Radial] Respiratory 18 18 Rate Blood Pressure 126/71 128/57 116/61 [Left Arm] Blood Pressure [Right Arm] O2 Sat by Pulse 95 92 L Oximetry 12/03/18 12/03/18 12/03/18 16:40 17:37 20:00 Temperature 97.6 F Pulse Rate 63 Pulse Rate [ Pulse Oximetery ] Pulse Rate [ 70 85 65 Right Radial] Respiratory 18 18 17 Rate Blood Pressure 121/70 121/52 132/63 [Left Arm] Blood Pressure [Right Arm] O2 Sat by Pulse 94 L 96 94 L Oximetry 12/03/18 12/03/18 12/03/18 20:05 20:06 20:16 Temperature Pulse Rate 66 69 67 Pulse Rate [ Pulse Oximetery ] Pulse Rate [ Right Radial] Respiratory Rate Blood Pressure [Left Arm] Blood Pressure [Right Arm] O2 Sat by Pulse Oximetry 12/03/18 12/03/18 12/04/18 23:21 23:23 01:34 Temperature 98.0 F Pulse Rate Pulse Rate [ Pulse Oximetery ] Pulse Rate [ 63 63 60 Right Radial] Respiratory 18 18 17 Rate Blood Pressure 129/80 125/70 [Left Arm] Blood Pressure [Right Arm] O2 Sat by Pulse 94 L 94 L Oximetry 12/04/18 12/04/18 12/04/18 03:20 03:26 08:00 Temperature 98.2 F 97.7 F Pulse Rate Pulse Rate [ Pulse Oximetery ] Pulse Rate [ 60 60 57 L Right Radial] Respiratory 17 17 18 Rate Blood Pressure 137/80 144/67 [Left Arm] Blood Pressure [Right Arm] O2 Sat by Pulse 95 96 Oximetry 12/04/18 12/04/18 12/04/18 08:30 08:40 08:43 Temperature Pulse Rate 68 68 68 Pulse Rate [ Pulse Oximetery ] Pulse Rate [ Right Radial] Respiratory Rate Blood Pressure [Left Arm] Blood Pressure [Right Arm] O2 Sat by Pulse Oximetry 12/04/18 08:48 Temperature Pulse Rate 72 Pulse Rate [ Pulse Oximetery ] Pulse Rate [ Right Radial] Respiratory Rate Blood Pressure [Left Arm] Blood Pressure [Right Arm] O2 Sat by Pulse Oximetry Chest pain, - -Cardiac cath was negative -Imdur was added by cardiology - We will check computed tomography scan of the lungs to rule out PE Patient has swelling in the lower extremities and shortness of breath we will start the patient on IV Lasix for suspected acute on chronic diastolic congestive heart failure Diabetes mellitus type 2, [id number] associated with neuropathy -Hold metformin and glimepiride -Sliding-scale insulin -Hemoglobin A1c 7.3 Ion deficiency anemia Follow-up as an outpatient Hypertension, controlled -Continue with imdur, beta colette, ARB, and Lasix -Follow blood pressures COPD with persistent shortness of breath we will start the patient on IV Solu Medrol and will monitor Generalized weakness Hypomagnesemia, resolved Objective - Vital Signs Vital signs: Vital Signs Temp 97.7 F 12/04/18 08:00 Pulse 72 12/04/18 08:48 Resp 18 12/04/18 08:00 BP 144/67 12/04/18 08:00 Pulse Ox 96 12/04/18 08:00 Intake & Output 12/03/18 12/04/18 12/04/18 18:59 06:59 18:59 Intake Total 200 990 0 Balance 200 990 0 Weight 98.5 kg Intake: IV 100 Oral 100 990 0 Other: Voiding Method Toilet # Voids 1 2 0 # Bowel Movements 0 - Labs CBC & Chem 7: 12/04/18 05:47 12/04/18 05:47 Labs: Abnormal Lab Results - Last 24 Hours (Table) 12/03/18 12/03/18 12/03/18 Range/Units 11:39 16:46 20:52 WBC (3.8-10.6) k/uL RBC (4.30-5.90) m/uL Hgb (13.0-17.5) gm/dL Hct (39.0-53.0) % Plt Count (150-450) k/uL Lymphocytes # (1.0-4.8) k/uL Chloride (98-107) mmol/L Glucose (74-99) mg/dL POC Glucose (mg/dL) 128 H 159 H 125 H (75-99) mg/dL 12/04/18 12/04/18 12/04/18 Range/Units 05:47 05:47 06:15 WBC 3.5 L (3.8-10.6) k/uL RBC 3.31 L (4.30-5.90) m/uL Hgb 10.1 L (13.0-17.5) gm/dL Hct 31.1 L (39.0-53.0) % Plt Count 147 L (150-450) k/uL Lymphocytes # 0.6 L (1.0-4.8) k/uL Chloride 112 H (98-107) mmol/L Glucose 133 H (74-99) mg/dL POC Glucose (mg/dL) 151 H (75-99) mg/dL
[2018-12-04 12:01] LABS: Glucose,Whole Blood 118 mg/dL (75-99)
--- NOTE | 2018-12-04 12:04 | P.PN ---
Subjective Progress Note Date: 12/04/18 This is a pleasant 78-year-old gentleman who follows regularly with Dr. Coulter in the office. He has a known history of coronary artery disease with prior stent placement, hypertension, hyperlipidemia, COPD, history of prior prostate cancer. Most recent cardiac catheterization was performed in 2017 which revealed moderate disease in the proximal LAD, no significant hemodynamically obstructive lesion in the proximal LAD by FFR performed at that time. He was also found to have mild to moderate disease in the circumflex and right coronary artery stent was patent at that time. Patient presented to [facility] with symptoms of left-sided chest discomfort which she describes as an ache in his chest. He does get some mild associated nausea with this, he states that the symptoms, and go. Each time lasting approximately 10 minutes in duration. He had 2 troponins drawn at [facility] which came back to be normal. For this reason was advised to undergo stress test. He did have Nitropaste applied on arrival there which she states helped relieve the symptoms. The Nitropaste was then removed prior to going to stress test and patient again develop symptoms. For this reason the stress test was canceled. They did make a phone call at that time to Dr. Coulter who recommended that the patient be transferred here for further evaluation and treatment. We do not have a copy of the EKG performed at [facility]. We will obtain an EKG here. Upon arrival here, patient did have one episode of chest discomfort, at the time of my examination he is currently chest pain-free. Blood pressure at [facility] 153/62 with a heart rate in the 50s 98% on room air. His white blood cell count was 4.4, hemoglobin 12.3, platelets 187. BUN 17, creatinine 1.3, sodium 141, potassium 3.4, magnesium 1.1 and CO2 27. Chest x-ray showed chronic changes without evidence of acute pulmonary disease. Blood pressure here 145/60 with a heart rate in the 70s, 93% on room air. 12/04/2018 Patient was seen and examined this morning, underwent a cardiac catheterization yesterday which was similar to his prior cardiac catheterization and medical therapy was advised. He was seen and examined this morning, apparently had some mild discomfort under the left nipple earlier, CTA of the chest has been ordered by primary to rule out pulmonary embolism. Hemodynamically he is stable. Objective - Vital Signs Vital signs: Vital Signs Temp 97.7 F 12/04/18 08:00 Pulse 68 12/04/18 11:49 Resp 18 12/04/18 08:00 BP 144/67 12/04/18 08:00 Pulse Ox 96 12/04/18 08:00 Intake & Output 12/03/18 12/04/18 12/04/18 18:59 06:59 18:59 Intake Total 200 990 0 Balance 200 990 0 Weight 98.5 kg Intake: IV 100 Oral 100 990 0 Other: Voiding Method Toilet # Voids 1 2 0 # Bowel Movements 0 - Exam PHYSICAL EXAMINATION: GENERAL: 78-year-old gentleman in no acute distress at the time of my examination HEENT: Head is atraumatic, normocephalic. Pupils equal, round. Sclera anicteric. Conjunctiva are clear. Mucous membranes of the mouth are moist. Neck is supple. There is no elevated jugular venous pressure. No carotid bruit is heard. HEART EXAMINATION: Heart S1, S2 normal. No murmur or gallop heard. CHEST EXAMINATION: Lungs are clear to auscultation and precussion. No chest wall tenderness is noted on palpation or with deep breathing. ABDOMEN: Soft, nontender. Bowel sounds are heard. No organomegaly noted. EXTREMITIES: 2+ peripheral pulses with no evidence of peripheral edema and no calf tenderness noted. Right radial site clean and dry, good distal pulse. NEUROLOGIC patient is awake, alert and oriented 3 . - Labs CBC & Chem 7: 12/04/18 05:47 12/04/18 05:47 Labs: Abnormal Lab Results - Last 24 Hours (Table) 12/03/18 12/03/18 12/04/18 Range/Units 16:46 20:52 05:47 WBC 3.5 L (3.8-10.6) k/uL RBC 3.31 L (4.30-5.90) m/uL Hgb 10.1 L (13.0-17.5) gm/dL Hct 31.1 L (39.0-53.0) % Plt Count 147 L (150-450) k/uL Lymphocytes # 0.6 L (1.0-4.8) k/uL Chloride (98-107) mmol/L Glucose (74-99) mg/dL POC Glucose (mg/dL) 159 H 125 H (75-99) mg/dL 12/04/18 12/04/18 12/04/18 Range/Units 05:47 06:15 11:57 WBC (3.8-10.6) k/uL RBC (4.30-5.90) m/uL Hgb (13.0-17.5) gm/dL Hct (39.0-53.0) % Plt Count (150-450) k/uL Lymphocytes # (1.0-4.8) k/uL Chloride 112 H (98-107) mmol/L Glucose 133 H (74-99) mg/dL POC Glucose (mg/dL) 151 H 118 H (75-99) mg/dL Assessment and Plan Plan: Assessment and plan #1 symptoms of chest discomfort with associated mild nausea, troponins 2 at [facility] have been negative. EKG performed here shows normal sinus rhythm with ST depression and ST-T wave changes in the anterior lateral leads from prior EKG. #2 known history of coronary artery disease with prior stenting of the right coronary artery in 2014, cardiac cath performed in 2017 revealed moderate disease in the proximal LAD, not significant by FFR, mild to moderate disease in the circumflex, RCA prior stented area patent. #3 hypertension #4 hyperlipidemia #5COPD #6 history of prostate cancer #7 hypomagnesemia Plan Patient did undergo cardiac catheterization which was similar to his prior cardiac cath and medical therapy was advised. He may be able to be discharged home today from cardiology's perspective, we will make him a follow-up appointment to see Dr. Coulter in the office post discharge. DNP note has been reviewed, I agree with a documented findings and plan of care. Patient was seen and examined.
--- NOTE | 2018-12-04 12:52 | CT ---
EXAMINATION TYPE: CT chest angio for PE DATE OF EXAM: 12/04/2018 COMPARISON: None HISTORY: Left sided chest pain. Shortness of breath with exertion. CT DLP: 355.4 mGycm CONTRAST: CT chest with contrast and 3D reconstruction with MIP imaging is performed with IV Contrast, patient injected with 71 mL of Isovue 370. Contrast-enhanced CT of the chest was performed through the course of the pulmonary arteries with roxana g and mediastinal window settings submitted. 3D reconstruction with MIP imaging was also performed. PULMONARY ARTERIES: The pulmonary arteries and their major tributaries are patent. I do not see cliff dence for sizable filling defect to suggest pulmonary embolic process. LUNGS: The lungs are clear and free of infiltrate. No evidence for atelectasis. No pulmonary nodule or mass is detected. No pleural effusion. MEDIASTINUM: Thoracic aorta is of normal caliber,however, evaluation is limited given timing of the contrast bolus. If there is concern for thoracic aortic pathology consider CLARIBEL. Correlate clinicall y . The heart is not enlarged. No evidence for mediastinal mass. No mediastinal lymph nodes greater than 1cm. HILAR STRUCTURES: No evidence for mass. No hilar lymph nodes greater than 1 cm. UPPER ABDOMEN: No significant abnormality is seen. IMPRESSION: 1. No evidence for Pulmonary embolism at this time.
[2018-12-04 15:18] VITALS: BMI 29.4
[2018-12-04] MEDS: methylPREDNISolone SOD SUCCI 40 MG/ML 1 ML VIAL IV SCH ×2 (15:41→23:20)
[2018-12-04 17:10] LABS: Glucose,Whole Blood 121 mg/dL (75-99)
[2018-12-04 20:38] LABS: Glucose,Whole Blood 207 mg/dL (75-99)
[2018-12-04] MEDS: ATORVASTATIN 80 MG TAB PO SCH (20:57)
[2018-12-04] MEDS: FUROSEMIDE 10 MG/ML 2 ML VIAL IV SCH (20:58)
[2018-12-04] MEDS ORDERED: BISACODYL 10 MG SUPP RECTAL STA (21:55)
[2018-12-04] MEDS ORDERED: SENNOSIDES-DOCUSATE SODIUM 1 EACH TAB PO SCH (22:00)
[2018-12-05] MEDS: FERROUS SULFATE 325 MG TAB PO SCH (07:04)
[2018-12-05] MEDS: INSULIN ASPART (NovoLOG) 100 UNIT/ML VIAL SQ SCH ×2 (07:04→12:25)
[2018-12-05] MEDS: PANTOPRAZOLE 40 MG TABLET PO SCH (07:04)
[2018-12-05 07:54] LABS: Basophils % (A) 0 %; Eosinophils # (A) 0.1 k/uL (0-0.7); Eosinophils % (A) 1 %; HCT 34.8 % (39.0-53.0); HGB 11.4 gm/dL (13.0-17.5); Lymphocytes # (A) 0.5 k/uL (1.0-4.8); Lymphocytes % (A) 9 %; MCH 30.7 pg (25.0-35.0); MCHC 32.7 g/dL (31.0-37.0); MCV 93.8 fL (80.0-100.0); Mean Platelet Volume 7.3; Monocytes # (A) 0.2 k/uL (0-1.0); Monocytes % (A) 4 %; Neutrophils # (A) 4.6 k/uL (1.3-7.7); Neutrophils % (A) 85 %; Platelet Count 173 k/uL (150-450); RDW 13.6 % (11.5-15.5); WBC 5.4 k/uL (3.8-10.6)
[2018-12-05 08:14] LABS: Albumin 3.8 g/dL (3.5-5.0); Calcium 9.6 mg/dL (8.4-10.2); Potassium 4.5 mmol/L (3.5-5.1); Total Bilirubin 0.4 mg/dL (0.2-1.3); Total Protein 6.2 g/dL (6.3-8.2)
[2018-12-05] MEDS: ALBUTEROL NEBULIZED 2.5 MG/3 ML INHALATION PRN (08:23)
[2018-12-05] MEDS: BUDESONIDE 0.5 MG/2 ML NEBU INHALATION SCH (08:23)
[2018-12-05] MEDS: FORMOTEROL FUMARATE 20 MCG/2 ML NEBU INHALATION SCH (08:23)
[2018-12-05] MEDS: FUROSEMIDE 10 MG/ML 2 ML VIAL IV SCH (08:40)
[2018-12-05] MEDS: METOPROLOL TARTRATE 12.5 MG TAB PO SCH (08:41)
[2018-12-05] MEDS: methylPREDNISolone SOD SUCCI 40 MG/ML 1 ML VIAL IV SCH (08:41)
[2018-12-05] MEDS: ISOSORBIDE MONONITRATE ER 30 MG TAB.ER.24H PO SCH (08:41)
[2018-12-05] MEDS: ALLOPURINOL 100 MG TAB PO SCH (08:41)
[2018-12-05] MEDS: CITALOPRAM HYDROBROMIDE 10 MG TAB PO SCH (08:41)
[2018-12-05] MEDS: LOSARTAN 25 MG TAB PO SCH (08:41)
[2018-12-05] MEDS: ASPIRIN 81 MG PO SCH (08:41)
--- NOTE | 2018-12-05 11:45 | P.DS ---
Providers Date of admission: 12/02/18 13:17 Attending physician: Olga Iraheta DO Primary care physician: Alexandra Buitrago Hospital Course: Patient admitted to the hospital with chest pain underwent cardiac cath was negative patient continued to have some chest pain and shortness of breath started on IV steroids IV Lasix after which the condition of the patient significantly improved Urine the hospital stay the patient remained stable computed tomography scan of the lungs was done and did not show any PE Today the patient feels much better and wants to go home Constitutional: No acute distress, conversant, pleasant Eyes: , no lid-lag PERRLA ENMT: NC/AT Oropharynx clear, no erythema, exudates Neck: Supple, FROM, no masses, or JVD No carotid bruits No thyromegaly Lungs: Clear to auscultation Clear to percussion Normal respiratory effort, no accessory muscle use Cardiovascular: Heart regular in rate and rhythm, No murmurs, gallops, or rubs No peripheral edema Abdominal: Soft Nontender, no guarding, rebound Skin: Normal temperature, tone, texture, turgor No induration No subcutaneous nodules No rash, lesions No ulcers Extremities: No digital cyanosis Psychiatric:Alert and oriented to person, place and time Appropriate affect Intact judgement Neuro: Some generalized weakness Vital Signs - 8 hr 12/05/18 12/05/18 12/05/18 03:45 03:47 07:47 Temperature 98.2 F 98.1 F Pulse Rate Pulse Rate [ 80 80 84 Right Radial] Respiratory 18 18 18 Rate Blood Pressure 155/69 175/85 [Left Arm] O2 Sat by Pulse 93 L 94 L Oximetry 12/05/18 12/05/18 12/05/18 08:00 08:26 08:34 Temperature Pulse Rate 76 76 Pulse Rate [ 84 Right Radial] Respiratory 18 Rate Blood Pressure [Left Arm] O2 Sat by Pulse Oximetry 12/05/18 12/05/18 08:35 08:44 Temperature Pulse Rate 76 80 Pulse Rate [ Right Radial] Respiratory Rate Blood Pressure [Left Arm] O2 Sat by Pulse Oximetry Chest pain, - -Cardiac cath was negative -Imdur was added by cardiology - No evidence of acute coronary syndrome during this hospital stay Diabetes mellitus type 2, myn-cqfmzzr-[id number] associated with neuropathy -Reasonably controlled Ion deficiency anemia Follow-up as an outpatient Hypertension, controlled -Continue with imdur, beta colette, ARB, and Lasix -Follow blood pressures COPD with exacerbation responded to IV steroids so we'll discharge the patient on prednisone and cephalosporins Patient to follow-up with pulmonology and primary care physician and cardiology patient has been stable and in no distress at the day of discharge Hypomagnesemia, resolved Patient Condition at Discharge: Fair Plan - Discharge Summary Discharge Rx Participant: No New Discharge Prescriptions: New Isosorbide Mononitrate ER [Imdur] 30 mg PO DAILY #30 tab predniSONE 20 mg PO DAILY #4 tab Cephalexin [Keflex] 500 mg PO Q8HR #15 cap No Action ALPRAZolam [Xanax] 0.5 mg PO BID PRN PRN Reason: Anxiety Omeprazole [PriLOSEC] 20 mg PO DAILY metFORMIN HCL [Glucophage] 500 mg PO BID Losartan Potassium [Cozaar] 25 mg PO DAILY Atorvastatin [Lipitor] 80 mg PO HS Aspirin 81 mg PO DAILY Metoprolol Tartrate [Lopressor] 12.5 mg PO BID Glimepiride [Amaryl] 2 mg PO BID Furosemide [Lasix] 40 mg PO DAILY Citalopram Hydrobromide [Citalopram HBr] 10 mg PO DAILY Allopurinol [Zyloprim] 100 mg PO DAILY Formoterol Fumarate [Perforomist] 20 mcg INHALATION BID Budesonide [Pulmicort] 0.5 mg INHALATION BID Discharge Medication List ALPRAZolam [Xanax] 0.5 mg PO BID PRN 07/14/17 [History] Aspirin 81 mg PO DAILY 07/14/17 [History] Atorvastatin [Lipitor] 80 mg PO HS 07/14/17 [History] Losartan Potassium [Cozaar] 25 mg PO DAILY 07/14/17 [History] Metoprolol Tartrate [Lopressor] 12.5 mg PO BID 07/14/17 [History] Omeprazole [PriLOSEC] 20 mg PO DAILY 07/14/17 [History] metFORMIN HCL [Glucophage] 500 mg PO BID 07/14/17 [History] Allopurinol [Zyloprim] 100 mg PO DAILY 12/02/18 [History] Budesonide [Pulmicort] 0.5 mg INHALATION BID 12/02/18 [History] Citalopram Hydrobromide [Citalopram HBr] 10 mg PO DAILY 12/02/18 [History] Formoterol Fumarate [Perforomist] 20 mcg INHALATION BID 12/02/18 [History] Furosemide [Lasix] 40 mg PO DAILY 12/02/18 [History] Glimepiride [Amaryl] 2 mg PO BID 12/02/18 [History] Cephalexin [Keflex] 500 mg PO Q8HR #15 cap 12/05/18 [Rx] Isosorbide Mononitrate ER [Imdur] 30 mg PO DAILY #30 tab 12/05/18 [Rx] predniSONE 20 mg PO DAILY #4 tab 12/05/18 [Rx] Follow up Appointment(s)/Referral(s): Valarie Coulter MD [STAFF PHYSICIAN] - 12/15/18 9:30 am Ezequiel Dent MD [REFERRING] - 3 Days (Office will call with follow up appointment.) Jeff Meade MD [STAFF PHYSICIAN] - 12/26/18 11:30 am (For sleep study.) Patient Instructions/Handouts: *Surgery [facility] - After Heart Catheterization - Tipple Repairer Instructions, Chest Pain (DC), Heart Healthy Diet (DC) Discharge Disposition: HOME SELF-CARE
[2018-12-05 12:02] LABS: Glucose,Whole Blood 209 mg/dL (75-99)
[2018-12-05 12:03] VITALS: BP 148/87; PULSE 68; RESP 17; TEMP 98.7
[2018-12-05 12:03] LABS: Glucose,Whole Blood 161 mg/dL (75-99)
--- NOTE | 2018-12-05 13:21 | P.PN ---
Subjective Progress Note Date: 12/05/18 This is a pleasant 78-year-old gentleman who follows regularly with Dr. Coulter in the office. He has a known history of coronary artery disease with prior stent placement, hypertension, hyperlipidemia, COPD, history of prior prostate cancer. Most recent cardiac catheterization was performed in 2017 which revealed moderate disease in the proximal LAD, no significant hemodynamically obstructive lesion in the proximal LAD by FFR performed at that time. He was also found to have mild to moderate disease in the circumflex and right coronary artery stent was patent at that time. Patient presented to [facility] with symptoms of left-sided chest discomfort which she describes as an ache in his chest. He does get some mild associated nausea with this, he states that the symptoms, and go. Each time lasting approximately 10 minutes in duration. He had [address] [facility] which came back to be normal. For this reason was advised to undergo stress test. He did have Nitropaste applied on arrival there which she states helped relieve the symptoms. The Nitropaste was then removed prior to going to stress test and patient again develop symptoms. For this reason the stress test was canceled. They did make a phone call at that time to Dr. Coulter who recommended that the patient be transferred here for further evaluation and treatment. We do not have a copy of the EKG performed at [facility]. We will obtain an EKG here. Upon arrival here, patient did have one episode of chest discomfort, at the time of my examination he is currently chest pain-free. Blood pressure at [facility] 153/62 with a heart rate in the 50s 98% on room air. His white blood cell count was 4.4, hemoglobin 12.3, platelets 187. BUN 17, creatinine 1.3, sodium 141, potassium 3.4, magnesium 1.1 and CO2 27. Chest x-ray showed chronic changes without evidence of acute pulmonary disease. Blood pressure here 145/60 with a heart rate in the 70s, 93% on room air. 12/04/2018 Patient was seen and examined this morning, underwent a cardiac catheterization yesterday which was similar to his prior cardiac catheterization and medical therapy was advised. He was seen and examined this morning, apparently had some mild discomfort under the left nipple earlier, CTA of the chest has been ordered by primary to rule out pulmonary embolism. Hemodynamically he is stable. 11/04/2018 Patient seen and examined this morning, overall doing well. A CT of the chest was performed to rule out pulmonary embolism which was negative. From our perspective the patient may be able to be discharged home today. Objective - Vital Signs Vital signs: Vital Signs Temp 98.7 F 12/05/18 12:00 Pulse 68 12/05/18 12:00 Resp 17 12/05/18 12:00 BP 148/87 12/05/18 12:00 Pulse Ox 95 12/05/18 12:00 Intake & Output 12/04/18 12/05/18 12/05/18 18:59 06:59 18:59 Intake Total 640 800 260 Balance 640 800 260 Weight 98.5 kg 99.2 kg Intake: IV 20 Invasive Line 2 20 Oral 640 800 240 Other: Voiding Method Toilet Toilet # Voids 0 2 # Bowel Movements 0 - Exam PHYSICAL EXAMINATION: GENERAL: 78-year-old gentleman in no acute distress at the time of my examination HEENT: Head is atraumatic, normocephalic. Pupils equal, round. Sclera anicteric. Conjunctiva are clear. Mucous membranes of the mouth are moist. Neck is supple. There is no elevated jugular venous pressure. No carotid bruit is heard. HEART EXAMINATION: Heart S1, S2 normal. No murmur or gallop heard. CHEST EXAMINATION: Lungs are clear to auscultation and precussion. No chest wall tenderness is noted on palpation or with deep breathing. ABDOMEN: Soft, nontender. Bowel sounds are heard. No organomegaly noted. EXTREMITIES: 2+ peripheral pulses with no evidence of peripheral edema and no calf tenderness noted. Right radial site clean and dry, good distal pulse. NEUROLOGIC patient is awake, alert and oriented 3 . - Labs CBC & Chem 7: 12/05/18 07:31 12/05/18 07:31 Labs: Abnormal Lab Results - Last 24 Hours (Table) 12/04/18 12/04/18 12/05/18 Range/Units 17:03 20:36 05:52 RBC (4.30-5.90) m/uL Hgb (13.0-17.5) gm/dL Hct (39.0-53.0) % Lymphocytes # (1.0-4.8) k/uL Glucose (74-99) mg/dL POC Glucose (mg/dL) 121 H 207 H 209 H (75-99) mg/dL Total Protein (6.3-8.2) g/dL 12/05/18 12/05/18 12/05/18 Range/Units 07:31 07:31 11:16 RBC 3.70 L (4.30-5.90) m/uL Hgb 11.4 L (13.0-17.5) gm/dL Hct 34.8 L (39.0-53.0) % Lymphocytes # 0.5 L (1.0-4.8) k/uL Glucose 177 H (74-99) mg/dL POC Glucose (mg/dL) 161 H (75-99) mg/dL Total Protein 6.2 L (6.3-8.2) g/dL Assessment and Plan Plan: Assessment and plan #1 symptoms of chest discomfort with associated mild nausea, troponins [address] [facility] have been negative. EKG performed here shows normal sinus rhythm with ST depression and ST-T wave changes in the anterior lateral leads from prior EKG. #2 known history of coronary artery disease with prior stenting of the right coronary artery in 2014, cardiac cath performed in 2017 revealed moderate disease in the proximal LAD, not significant by FFR, mild to moderate disease in the circumflex, RCA prior stented area patent. #3 hypertension #4 hyperlipidemia #5COPD #6 history of prostate cancer #7 hypomagnesemia Plan Patient did undergo cardiac catheterization which was similar to his prior cardiac cath and medical therapy was advised. He may be able to be discharged home today from cardiology's perspective, we will make him a follow-up appointment to see Dr. Coulter in the office post discharge. DNP note has been reviewed, I agree with a documented findings and plan of care. Patient was seen and examined.
== END 2018-12-05 12:38 | disposition home or self-care (01) | DRG 287 ==
LOC: 3SCARD 13:17
PROVIDERS: ADMIT Internal Medicine; ATTEND Internal Medicine
PROC: 4A023N7 Measurement of Cardiac Sampling and Pressure, Left Heart, Percutaneous Approach (ICD-10-PCS; principal; 2018-12-03 13:00)
PROC: B2111ZZ Fluoroscopy of Multiple Coronary Arteries using Low Osmolar Contrast (ICD-10-PCS; principal; 2018-12-03 13:00)
PROC: B2151ZZ Fluoroscopy of Left Heart using Low Osmolar Contrast (ICD-10-PCS; principal; 2018-12-03 13:00)
DX: I25.10 Atherosclerotic heart disease of native coronary artery without angina pectoris (principal); J44.1 Chronic obstructive pulmonary disease with (acute) exacerbation; D53.9 Nutritional anemia, unspecified; E11.40 Type 2 diabetes mellitus with diabetic neuropathy, unspecified; E78.5 Hyperlipidemia, unspecified; E83.42 Hypomagnesemia; G25.81 Restless legs syndrome; I10 Essential (primary) hypertension; I25.2 Old myocardial infarction; Z79.51 Long term (current) use of inhaled steroids; Z79.82 Long term (current) use of aspirin; Z79.84 Long term (current) use of oral hypoglycemic drugs; Z79.899 Other long term (current) drug therapy; Z80.1 Family history of malignant neoplasm of trachea, bronchus and lung; Z85.46 Personal history of malignant neoplasm of prostate; Z85.47 Personal history of malignant neoplasm of testis; Z87.891 Personal history of nicotine dependence; Z95.5 Presence of coronary angioplasty implant and graft
CPT/HCPCS: 71275; 76705; 80048; 80053; 82728; 83036; 83540; 83550; 83735; 84484; 85025; 85610; 85730; 93306; 93458; 94640

== ENCOUNTER 2019-11-05 09:50 | Observation (INO) | payer BC, MEDICARE ==
[2019-11-05] MEDS ORDERED: NITROGLYCERIN-D5W PMX 50 MG in DEXTROSE/WATER 1 250ML.BAG IV STA (10:04)
[2019-11-05] MEDS ORDERED: HEPARIN SODIUM,PORCINE 5,000 UNIT/ML 1 ML VIAL IV PRN (10:17)
[2019-11-05] MEDS: HEPARIN SOD,PORK IN 0.45% NACL 25,000 UNIT in 0.45% NACL 1 250ML.BAG IV SCH (10:36)
[2019-11-05 10:39] LABS: Basophils # (A) 0.1 k/uL (0-0.2); Basophils % (A) 2 %; Eosinophils # (A) 0.2 k/uL (0-0.7); Eosinophils % (A) 4 %; HCT 34.5 % (39.0-53.0); HGB 11.8 gm/dL (13.0-17.5); Lymphocytes # (A) 0.7 k/uL (1.0-4.8); Lymphocytes % (A) 16 %; MCH 30.6 pg (25.0-35.0); MCHC 34.1 g/dL (31.0-37.0); MCV 89.8 fL (80.0-100.0); Mean Platelet Volume 7.4; Monocytes # (A) 0.3 k/uL (0-1.0); Monocytes % (A) 6 %; Neutrophils % (A) 69 %; Platelet Count 162 k/uL (150-450); RBC 3.84 m/uL (4.30-5.90); RDW 13.2 % (11.5-15.5); WBC 4.4 k/uL (3.8-10.6)
[2019-11-05 10:47] LABS: Prothrombin Time 10.3 sec (9.0-12.0)
[2019-11-05 10:50] LABS: Albumin 3.8 g/dL (3.5-5.0); Calcium 9.1 mg/dL (8.4-10.2); Potassium 4.5 mmol/L (3.5-5.1); Total Bilirubin 0.6 mg/dL (0.2-1.3); Total Protein 6.5 g/dL (6.3-8.2)
--- NOTE | 2019-11-05 11:30 | ED ---
Chest Pain HPI - General Chief Complaint: Chest Pain Stated Complaint: Cardiac issues Time Seen by Provider: 11/05/19 09:55 Source: patient, family, EMS Mode of arrival: EMS Limitations: no limitations - History of Present Illness Initial Comments: The patient is a 79-year-old male who presents to the emergency department with reported chest pain. He states that he had sudden onset of his symptoms run 3 AM this morning. He awoke with substernal, radiating chest pain which went to his left arm. He has a known cardiac history. One previous stent placement rectally 5 years ago. Last cath was 2 years ago and he had some vessel disease however nothing that needed to be stented. He was transported to a [facility] and was evaluated there. First troponin was negative. He is placed on heparin and nitro drip and transported for facility for cardiology evaluation. He reports that the chest pain has been going on intermittently for the past 2-3 weeks and he's been "ignoring". States it occurs at rest. He took one sublingual nitro at home and the pain improved tremendously. He follows a Dr. Coulter. He denies any fevers or chills. No cough or hemoptysis. - Related Data Home Medications Medication Instructions Recorded Confirmed ALPRAZolam [Xanax] 0.5 mg PO BID PRN 07/14/17 11/05/19 Aspirin 81 mg PO DAILY 07/14/17 11/05/19 Atorvastatin [Lipitor] 80 mg PO HS 07/14/17 11/05/19 Losartan Potassium [Cozaar] 25 mg PO DAILY 07/14/17 11/05/19 Albuterol Nebulized [Ventolin 2.5 mg INHALATION BID 11/05/19 11/05/19 Nebulized] Allopurinol [Zyloprim] 100 mg PO DAILY 11/05/19 11/05/19 Glimepiride [Amaryl] 4 mg PO BID 11/05/19 11/05/19 Meloxicam 15 mg PO DAILY 11/05/19 11/05/19 Omeprazole [PriLOSEC] 20 mg PO DAILY 11/05/19 11/05/19 buPROPion XL [Wellbutrin XL] 150 mg PO DAILY 11/05/19 11/05/19 metFORMIN HCL ER [Glucophage Xr] 1,000 mg PO DAILY 11/05/19 11/05/19 Allergies Allergy/AdvReac Type Severity Reaction Status Date / Time No Known Allergies Allergy Verified 12/02/18 13:50 Review of Systems ROS Statement: Those systems with pertinent positive or pertinent negative responses have been documented in the HPI. ROS Other: All systems not noted in ROS Statement are negative. EKG Findings - EKG Comments: EKG Findings:: EKG demonstrates a sinus rhythm with a ventricular rate of 78. VT interval 196. QRS 90. QTC of 437. No acute ST segment elevations. There are inverted T waves in V3 through V6. Past Medical History Past Medical History: Coronary Artery Disease (CAD), Cancer, Chest Pain / Angina, COPD, Diabetes Mellitus, Hyperlipidemia, Myocardial Infarction ([place]) Additional Past Medical History / Comment(s): Prostate cancer with hormone tx/radiation, L testicular cancer with radiation/surgery, NIDDM type II, neuropathy bilateral feet and starting in bilateral hands, vertigo, Gout. Last Myocardial Infarction Date:: 10/17/14 History of Any Multi-Drug Resistant Organisms: None Reported Past Surgical History: Heart Catheterization With Stent, Orthopedic Surgery Additional Past Surgical History / Comment(s): 2014 PCI with stent, 2016 cardiac cath treated medically, L orchiectomy, L rotator cuff repair, colonoscopies-3 in past year d/t multiple polyps-all bening, bilateral cataract removal. Past Anesthesia/Blood Transfusion Reactions: No Reported Reaction Date of Last Stent Placement:: 10/18/14 Past Psychological History: No Psychological Hx Reported Smoking Status: Former smoker Past Alcohol Use History: Occasional Past Drug Use History: None Reported - Past Family History Brother(s) Family Medical History: Cancer Son(s) Family Medical History: Cancer Additional Family Medical History / Comment(s): Lung Ca and Brain tumor Mother Family Medical History: Dementia Father Family Medical History: Cancer, Dementia Additional Family Medical History / Comment(s): Father had lung cancer. He in his 80s. He was a smoker. General Exam Limitations: no limitations General appearance: alert, in no apparent distress Head exam: Present: atraumatic, normocephalic, normal inspection Eye exam: Present: normal appearance, PERRL, EOMI. Absent: scleral icterus, conjunctival injection, periorbital swelling ENT exam: Present: normal exam, mucous membranes moist Neck exam: Present: normal inspection. Absent: tenderness, meningismus, lymphadenopathy Respiratory exam: Present: normal lung sounds bilaterally. Absent: respiratory distress, wheezes, rales, rhonchi, stridor Cardiovascular Exam: Present: regular rate, normal rhythm, normal heart sounds. Absent: systolic murmur, diastolic murmur, rubs, gallop, clicks GI/Abdominal exam: Present: soft, normal bowel sounds. Absent: distended, tenderness, guarding, rebound, rigid Extremities exam: Present: normal inspection, full ROM, normal capillary refill. Absent: tenderness, pedal edema, joint swelling, calf tenderness Back exam: Present: normal inspection Neurological exam: Present: alert, oriented X3, CN II-XII intact Psychiatric exam: Present: normal affect, normal mood Skin exam: Present: warm, dry, intact, normal color. Absent: rash Course Vital Signs 11/05/19 11/05/19 11/05/19 09:55 09:57 10:00 Temperature 98.2 F Pulse Rate 64 61 Respiratory 18 Rate Blood Pressure 147/101 147/101 O2 Sat by Pulse 95 96 96 Oximetry 11/05/19 11/05/19 11/05/19 10:30 11:00 11:19 Temperature 98.0 F Pulse Rate 73 80 70 Respiratory 18 Rate Blood Pressure 147/101 147/101 137/89 O2 Sat by Pulse 95 96 95 Oximetry 11/05/19 11/05/19 11/05/19 11:30 12:00 12:30 Temperature Pulse Rate 70 63 65 Respiratory Rate Blood Pressure 137/89 122/74 119/75 O2 Sat by Pulse 97 99 97 Oximetry 11/05/19 11/05/19 11/05/19 12:50 13:00 13:30 Temperature Pulse Rate 73 61 61 Respiratory 18 Rate Blood Pressure 98/65 98/65 110/58 O2 Sat by Pulse 97 98 98 Oximetry 11/05/19 11/05/19 11/05/19 13:56 14:00 14:30 Temperature Pulse Rate 85 57 L 68 Respiratory 18 Rate Blood Pressure 115/70 115/70 112/63 O2 Sat by Pulse 97 98 97 Oximetry 11/05/19 11/05/19 11/05/19 15:00 15:30 15:34 Temperature Pulse Rate 60 64 64 Respiratory 16 Rate Blood Pressure 114/67 114/72 114/72 O2 Sat by Pulse 98 98 98 Oximetry 11/05/19 11/05/19 11/05/19 16:00 16:30 17:00 Temperature Pulse Rate 66 67 72 Respiratory Rate Blood Pressure 107/63 102/78 131/66 O2 Sat by Pulse 98 96 98 Oximetry 11/05/19 11/05/19 17:30 17:34 Temperature Pulse Rate 67 67 Respiratory Rate Blood Pressure 112/78 112/78 O2 Sat by Pulse 99 99 Oximetry Chest Pain MDM - MDM Review the patient's chart including laboratory studies which demonstrated a negative troponin. I did reinitiate his heparin and nitro drip. The patient is pain-free on these medications. I called and discussed the case with Dr. Blanco who accepted admission for the patient. I will place cardiology consult. He remained in stable condition and was transported to the floor Disposition Clinical Impression: Chest pain, Unstable angina Disposition: ADMITTED IP TO THIS HOSP Condition: Stable Is patient prescribed a controlled substance at d/c from ED?: No Decision to Admit Reason: Admit from EC Decision Date: 11/05/19 Decision Time: 11:32
[2019-11-05] MEDS ORDERED: NALOXONE 0.4 MG/ML 1 ML VIAL IV PRN (11:33)
--- NOTE | 2019-11-05 18:00 | P.HPIM ---
History of Present Illness H&P Date: 11/05/19 Chief Complaint: Chest pain 79-year-old male with PMH of gout, diabetes mellitus, CAD post stent, hypertension, COPD resents to the ED for chest pain. Patient initially prese nted to her [facility] with acute onset chest pain. Patient states he woke up around 3 AM with sharp left-sided chest pain. He described the chest pain as pressure-like. Pain was 9 out of 10 in severity. Pain was constant and radiating to the left shoulder. Patient states that he attempted to take nitroglycerin around 6 AM which slightly eased the pain. His works ever for [employer] and was getting ready to go to work which prompted him to go to the ED for evaluation of his chest pain. He denies any headache, lower extremity edema, nausea or vomiting, fever or chills, cough, shortness of breath, palpitations, changes in urination or bowel habits. Patient reports decreased appetite and weight loss of 15 pounds since starting metformin. Patient reports suffering an IL in 2014 for which he received stent placement. He reports that his chest pain is similar to the chest pain he felt when having his IL in 2015. In the ED, vital signs were stable. CBC showed hemoglobin of 11.8. Coagulation panel showed PTT of 69. CMP showed BUN 23, creatinine 1.33, glucose 143. Troponin was less than 0.0122 with EKG showing sinus rhythm and marketed sinus arrhythmia with T-wave abnormalities. Patient was started on heparin drip and admitted for chest pain, rule out acute coronary syndrome with cardiology on consultation. Review of Systems Pertinent positives and negatives as discussed in HPI, a complete review of systems was performed and all other systems are negative. Past Medical History Past Medical History: Coronary Artery Disease (CAD), Cancer, Chest Pain / Ani na, COPD, Diabetes Mellitus, Hyperlipidemia, Myocardial Infarction ([place]), Osteoarthritis ([place]), Pneumonia Additional Past Medical History / Comment(s): Prostate cancer with hormone tx/radiation, L testicular cancer with radiation/surgery, NIDDM type II, neuropathy bilateral feet and starting in bilateral hands, vertigo, arthritis mostly in his back, bilateral leg edema. Last Myocardial Infarction Date:: 10/18/14 History of Any Multi-Drug Resistant Organisms: None Reported Past Surgical History: Heart Catheterization With Stent, Orthopedic Surgery Additional Past Surgical History / Comment(s): 2014 PCI with stent, cardiac cath treated medically, L orchiectomy, L rotator cuff repair, colonoscopies- multiple polyps-all benign, bilateral cataract removal. Past Anesthesia/Blood Transfusion Reactions: No Reported Reaction Date of Last Stent Placement:: 10/18/14 Past Psychological History: No Psychological Hx Reported Additional Psychological History / Comment(s): Pt resides with his spouse of 36 yrs. He is independent. He has a glucometer and a nebulizer. He drives Smoking Status: Former smoker Past Alcohol Use History: Occasional Additional Past Alcohol Use History / Comment(s): Pt started smoking in 1956 and quit in 1990. He states he drinks alcohol sometimes on a daily basis. He states some weeks he may go over 14 drinks. Past Drug Use History: None Reported - Past Family History Brother(s) Family Medical History: Cancer Son(s) Family Medical History: Cancer Additional Family Medical History / Comment(s): One son from lung Ca at the age of 52 yrs and another son that from cancerous brain tumor at the age of 52 yrs. Mother Family Medical History: Dementia Father Family Medical History: Cancer, Dementia Additional Family Medical History / Comment(s): Father had lung cancer. He in his 80s. He was a smoker. Medications and Allergies Home Medications Medication Instructions Recorded Confirmed Type Atorvastatin [Lipitor] 80 mg PO HS 07/14/17 11/05/19 History Losartan Potassium [Cozaar] 25 mg PO DAILY 07/14/17 11/05/19 History RX: ALPRAZolam [Xanax] 0.5 mg PO BID PRN 07/14/17 11/05/19 History RX: Aspirin 81 mg PO DAILY 07/14/17 11/05/19 History Allopurinol [Zyloprim] 100 mg PO DAILY 11/05/19 11/05/19 History Glimepiride [Amaryl] 4 mg PO BID 11/05/19 11/05/19 History Omeprazole [PriLOSEC] 20 mg PO DAILY 11/05/19 11/05/19 History RX: Meloxicam 15 mg PO DAILY 11/05/19 11/05/19 History buPROPion XL [Wellbutrin Xl] 150 mg PO DAILY 11/05/19 11/05/19 History metFORMIN HCL ER [Glucophage Xr] 1,000 mg PO DAILY 11/05/19 11/05/19 History Allergies Allergy/AdvReac Type Severity Reaction Status Date / Time No Known Allergies Allergy Verified 12/02/18 13:50 Physical Exam Vitals: Vital Signs Temp Pulse Resp BP Pulse Ox 11/05/19 17:34 67 112/78 99 11/05/19 17:30 67 112/78 99 11/05/19 17:00 72 131/66 98 11/05/19 16:30 67 102/78 96 11/05/19 16:00 66 107/63 98 11/05/19 15:34 64 16 114/72 98 11/05/19 15:30 64 114/72 98 11/05/19 15:00 60 114/67 98 11/05/19 14:30 68 112/63 97 11/05/19 14:00 57 L 115/70 98 11/05/19 13:56 85 18 115/70 97 11/05/19 13:30 61 110/58 98 11/05/19 13:00 61 98/65 98 11/05/19 12:50 73 18 98/65 97 11/05/19 12:30 65 119/75 97 11/05/19 12:00 63 122/74 99 11/05/19 11:30 70 137/89 97 11/05/19 11:19 98.0 F 70 18 137/89 95 11/05/19 11:00 80 147/101 96 11/05/19 10:30 73 147/101 95 11/05/19 10:00 61 147/101 96 11/05/19 09:57 98.2 F 64 18 147/101 96 11/05/19 09:55 95 Intake and Output 11/05/19 11/05/19 11/05/19 06:59 14:59 22:59 Intake Total 8.482 Balance 8.482 Intake: Intake, IV Titration 8.482 Amount Heparin Sod,Pork in 0.45% 8.482 NaCl 25,000 unit In 0.45 % NaCl 1 250ml.bag @ 10 UNITS/KG/HR 9.979 mls/hr IV .Q24H [facility] Rx#: [id number] Other: Weight 99.79 kg General: [non toxic], [no distress], [appears at stated age] Derm: [warm], [dry] Head: [atraumatic], [normocephalic], [symmetric] Eyes: [EOMI], [no lid lag], [anicteric sclera] Mouth: [no lip lesion], [mucus membranes moist] Cardiovascular: [S1S2 reg], [no murmur], [positive DP pulse bilateral], Lungs: [Decreased breath sounds bilateral], [no rhonchi, no rales] , [no accessory muscle use] Abdominal: [soft], [ nontender to palpation], [no guarding], [no appreciable organomegaly] Ext: [no gross muscle atrophy], [1+ pitting lower extremity edema], [no contract ures] Neuro: [ CN II-XI grossly intact], [no focal neuro deficits] Psych: [Alert], [oriented], [appropriate affect] Results CBC & Chem 7: 11/05/19 10:27 11/05/19 10:27 Labs: Abnormal Lab Results - Last 24 Hours (Table) 11/05/19 11/05/19 11/05/19 Range/Units 10:27 10:27 10:27 RBC 3.84 L (4.30-5.90) m/uL Hgb 11.8 L (13.0-17.5) gm/dL Hct 34.5 L (39.0-53.0) % Lymphocytes # 0.7 L (1.0-4.8) k/uL APTT 69.0 H (22.0-30.0) sec BUN 23 H (9-20) mg/dL Creatinine 1.33 H (0.66-1.25) mg/dL Glucose 143 H (74-99) mg/dL Thrombosis Risk Factor Assmnt - Choose All That Apply Any of the Below Risk Factors Present?: Yes Each Factor Represents 1 point: Abnormal pulmonary function (COPD), Obesity (BMI >25) Other Risk Factors: Yes Each Risk Factor Represents 2 Points: Malignancy Each Risk Factor Represents 3 Points: Age 75 years or older Other congenital or acquired thrombophilia - If yes, enter type in comment: No Thrombosis Risk Factor Assessment Total Risk Factor Score: 7 Thrombosis Risk Factor Assessment Level: High Risk Assessment and Plan Assessment: Chest pain with history of CAD and stent placement Acute kidney injury Anemia COPD not in exacerbation Diabetes mellitus Hypertension Troponin less than 0.0122 with EKG showing sinus rhythm with marked sinus arrhythmia. Plans: Trend troponin/EKG to rule out ACS. Continue heparin drip. Continue nitroglycerin drip. Continue aspirin and Lipitor. Follow echocardiogram. Follow-up cardiology consultation. Creatinine 1.33. Likely due to dehydration from poor appetite. Plans: Encourage hydration by mouth. Avoid nephrotoxins. Hold losartan. Repeat BMP tomorrow morning. Hemoglobin 11.8. Normocytic. Unknown significance. Plans: Continue to monitor. Plans: Albuterol neb as needed for shortness of breath or wheezing. [id number] glucose 143. Plans: Insulin sliding scale. Regular Accu-Cheks. Hypoglycemic precautions. BP 112/78. Plans: Monitor vitals, adjust medications as necessary. DVT prophylaxis: [Heparin drip] Discussed with: [Patient and ] Anticipated discharge: [1-2 days] Anticipated discharge place: [Home] A total of [45] minutes was spent on the care of this complex patient more than 50% of the time was spent in counseling and care coordination. Patient names his Natalia decision-maker if he can't make decisions for himself. Patient would like to be full code.
[2019-11-05 20:48] LABS: Glucose,Whole Blood 117 mg/dL (75-99)
[2019-11-05] MEDS: ATORVASTATIN 80 MG TAB PO SCH (21:24)
[2019-11-05] MEDS ORDERED: IPRATROPIUM-ALBUTEROL 3 ML NEB INHALATION PRN (23:23)
[2019-11-06 06:03] LABS: Glucose,Whole Blood 138 mg/dL (75-99)
[2019-11-06] MEDS: PANTOPRAZOLE 40 MG TABLET PO SCH (06:25)
[2019-11-06 07:02] LABS: Calcium 8.7 mg/dL (8.4-10.2); Potassium 4.2 mmol/L (3.5-5.1)
[2019-11-06] MEDS ORDERED: ALBUTEROL NEBULIZED 2.5 MG/3 ML INHALATION PRN (08:02)
[2019-11-06] MEDS: ASPIRIN 81 MG PO SCH (08:49)
[2019-11-06] MEDS: buPROPion XL 150 MG TAB.ER.24H PO SCH (08:49)
[2019-11-06] MEDS: MELOXICAM 7.5 MG TAB PO SCH (08:49)
[2019-11-06] MEDS ORDERED: LOSARTAN 25 MG TAB PO SCH (09:00)
--- NOTE | 2019-11-06 11:13 | ECHOF ---
Referral Reason:Chest pain MEASUREMENTS -------- HEIGHT: 182.9 cm WEIGHT: 97.1 kg BP: 143/64 RVIDd: 3.2 cm (< 3.3) IVSd: 1.4 cm (0.6 - 1.1) LVIDd: 4.2 cm (3.9 - 5.3) LVPWd: 1.3 cm (0.6 - 1.1) IVSs: 1.7 cm LVIDs: 3.1 cm LVPWs: 1.6 cm LA Diam: 3.6 cm (2.7 - 3.8) LAESV Index (A-L): 18.87 ml/m Ao Diam: 4.0 cm (2.0 - 3.7) AV Cusp: 2.3 cm (1.5 - 2.6) MV EXCURSION: 19.176 mm (> 18.000) MV EF SLOPE: 115 mm/s (70 - 150) EPSS: 1.0 cm MV E Fady: 0.73 m/s MV DecT: 270 ms MV A Fady: 0.65 m/s MV E/A Ratio: 1.13 AR PHT: 871 ms RAP: 5.00 mmHg RVSP: 32.94 mmHg TAPSE: 22.65 mm FINDINGS -------- Sinus rhythm. This was a technically adequate study. The left ventricular size is normal. There is mild concentric left ventricular hypertrophy. Overa ll left ventricular systolic function is normal with, an EF between 60 - 65 %. The right ventricle is normal in size. Normal LA size by volume 22+/-6 ml/m2. The right atrium is normal in size. 4 ml of Lumason was utilized for enhancement of images. Interatrial and interventricular septum intact. The aortic valve is trileaflet and appears structurally normal. There is mild aortic regurgitation. Mild mitral annular calcification present. Moderate mitral regurgitation is present. Mild tricuspid regurgitation present. Right ventricular systolic pressure is normal at < 35 mmHg. The pulmonic valve was not well visualized. The aortic root is dilated measuring 4.0cm. IVC Not well visulized. There is no pericardial effusion. CONCLUSIONS -------- 1. Sinus rhythm. 2. This was a technically adequate study. 3. The left ventricular size is normal. 4. There is mild concentric left ventricular hypertrophy. 5. Overall left ventricular systolic function is normal with, an EF between 60 - 65 %. 6. The right ventricle is normal in size. 7. Normal LA size by volume 22+/-6 ml/m2. 8. The right atrium is normal in size. 9. 4 ml of Lumason was utilized for enhancement of images. 10. Interatrial and interventricular septum intact. 11. The aortic valve is trileaflet and appears structurally normal. 12. There is mild aortic regurgitation. 13. Mild mitral annular calcification present. 14. Moderate mitral regurgitation is present. 15. Mild tricuspid regurgitation present. 16. Right ventricular systolic pressure is normal at < 35 mmHg. 17. The pulmonic valve was not well visualized. 18. The aortic root is dilated measuring 4.0cm. 19. IVC Not well visulized. 20. There is no pericardial effusion. BOARDING KENNEL OR CATTERY OPERATOR: Amber Kahn RDCS
[2019-11-06] MEDS: HEPARIN SOD,PORK IN 0.45% NACL 25,000 UNIT in 0.45% NACL 1 250ML.BAG IV SCH (12:00)
[2019-11-06 12:16] LABS: Glucose,Whole Blood 168 mg/dL (75-99)
--- NOTE | 2019-11-06 13:22 | P.PN ---
Subjective Progress Note Date: 11/06/19 Principal diagnosis: Chest pain Patient was seen and examined. No acute events overnight. Patient reports no chest pain since yesterday. He denies any palpitations or shortness of breath. No nausea or vomiting. No fever or chills. Objective - Vital Signs Vital signs: Vital Signs Temp 97.6 F 11/06/19 08:00 Pulse 68 11/06/19 11:55 Resp 16 11/06/19 11:55 BP 119/74 11/06/19 11:55 Pulse Ox 95 11/06/19 11:55 Intake & Output 11/05/19 11/06/19 11/06/19 18:59 06:59 18:59 Intake Total 8.482 419.572 61.946 Output Total 100 Balance 8.482 319.572 61.946 Weight 99.79 kg 97.1 kg Intake: Intake, IV Titration 8.482 179.572 61.946 Amount Heparin Sod,Pork in 0.45% 8.482 179.572 61.946 NaCl 25,000 unit In 0.45 % NaCl 1 250ml.bag @ 10 UNITS/KG/HR 9.979 mls/hr IV .Q24H [facility] Rx#: [id number] Oral 240 0 Output: Urine 100 Other: Voiding Method Toilet Toilet Urinal Urinal # Voids 2 - Exam General: [non toxic], [no distress], [appears at stated age] Derm: [warm], [dry] Head: [atraumatic], [normocephalic], [symmetric] Eyes: [EOMI], [no lid lag], [anicteric sclera] Mouth: [no lip lesion], [mucus membranes moist] Cardiovascular: [S1S2 reg], [no murmur], [positive DP pulse bilateral], Lungs: [Decreased breath sounds bilateral], [no rhonchi, no rales] , [no accessory muscle use] Abdominal: [soft], [ nontender to palpation], [no guarding], [no appreciable organomegaly] Ext: [no gross muscle atrophy], [no lower extremity edema], [no contractures] Neuro: [no focal neuro deficits] Psych: [Alert], [oriented], [appropriate affect] - Labs CBC & Chem 7: 11/05/19 10:27 11/06/19 06:00 Labs: Abnormal Lab Results - Last 24 Hours (Table) 11/05/19 11/05/19 11/06/19 Range/Units 19:06 20:47 01:40 APTT 32.0 H 42.4 H (22.0-30.0) sec Chloride (98-107) mmol/L BUN (9-20) mg/dL Glucose (74-99) mg/dL POC Glucose (mg/dL) 117 H (75-99) mg/dL 11/06/19 11/06/19 11/06/19 Range/Units 06:00 06:01 12:10 APTT 43.0 H (22.0-30.0) sec Chloride 109 H (98-107) mmol/L BUN 23 H (9-20) mg/dL Glucose 128 H (74-99) mg/dL POC Glucose (mg/dL) 138 H (75-99) mg/dL 11/06/19 Range/Units 12:13 APTT (22.0-30.0) sec Chloride (98-107) mmol/L BUN (9-20) mg/dL Glucose (74-99) mg/dL POC Glucose (mg/dL) 168 H (75-99) mg/dL Assessment and Plan Assessment: Chest pain with history of CAD and stent placement Anemia COPD not in exacerbation Diabetes mellitus Hypertension Troponin less than 0.012 3 with EKG showing sinus rhythm with marked sinus arrhythmia. Plans: ACS ruled out. Continue heparin drip. Nitroglycerin drip discontinued as patient is symptom-free. Continue aspirin and Lipitor. Follow echocardiogram. Follow-up cardiology consultation. Hemoglobin 11.8. Normocytic. Unknown significance. Plans: Continue to monitor. Plans: Albuterol neb as needed for shortness of breath or wheezing. [id number] glucose 168. Plans: Insulin sliding scale. Regular Accu-Cheks. Hypoglycemic precautions. BP 119/74. Plans: Monitor vitals, adjust medications as necessary. [Patient admitted for chest pain. ACS ruled out. He continues to be on heparin drip. Cardiology evaluation pending. Dr. Nir handy. DC planning based on cardiology recommendations.]
[2019-11-06 14:51] VITALS: BMI 29.0
--- NOTE | 2019-11-06 15:51 | P.DS ---
Providers Date of admission: 11/05/19 11:33 Expected date of discharge: 11/06/19 Attending physician: Digna Fletcher MD Consults: 11/05/19 11:35 Consult Physician Urgent Consulting Provider: [facility] Consult Reason/Comments: acute chest pain, unstable angina Do you want consulting provider notified?: Yes Primary care physician: Ezequiel Dent MD Hospital Course: 79-year-old male with PMH of gout, diabetes mellitus, CAD post stent, hypertension, COPD resents to the ED for chest pain. Patient initially presented to [facility] with acute onset chest pain. His works ever for [employer] and was getting ready to go to work which prompted him to go to the ED for evaluation of his chest pain. He reports that his chest pain is similar to the chest pain he felt when having his ME in 2015. In the ED, vital signs were stable. CBC showed hemoglobin of 11.8. Coagulation panel showed PTT of 69. CMP showed BUN 23, creatinine 1.33, glucose 143. Troponin was less than 0.0122 with EKG showing sinus rhythm and marketed sinus arrhythmia with T-wave abnormalities. Patient was started on heparin drip and admitted for chest pain, rule out acute coronary syndrome with cardiology on consultation. Patient's troponin was less than 0.0123 with EKG showing sinus rhythm and marketed sinus arrhythmia. Acute coronary syndrome was ruled out. Patient was initially on a heparin and nitroglycerin drip which was discontinued as patient was asymptomatic on day 2 of admission. He was continued on aspirin and Lipitor. Echocardiogram was obtained which showed EF 60-65% with mild concentric LVH. Patient was evaluated by cardiology Dr. Loyola and cleared for discharge. Admission diagnosis: Chest pain with history of CAD and stent placement Anemia COPD not in exacerbation Diabetes mellitus Hypertension Pertinent Studies: Echo Patient Condition at Discharge: Stable Plan - Discharge Summary Discharge Rx Participant: No New Discharge Prescriptions: Continue ALPRAZolam [Xanax] 0.5 mg PO BID PRN PRN Reason: Anxiety Losartan Potassium [Cozaar] 25 mg PO DAILY Atorvastatin [Lipitor] 80 mg PO HS Aspirin 81 mg PO DAILY metFORMIN HCL ER [Glucophage Xr] 1,000 mg PO DAILY Omeprazole [PriLOSEC] 20 mg PO DAILY buPROPion XL [Wellbutrin XL] 150 mg PO DAILY Meloxicam 15 mg PO DAILY Glimepiride [Amaryl] 4 mg PO BID Allopurinol [Zyloprim] 100 mg PO DAILY Albuterol Nebulized [Ventolin Nebulized] 2.5 mg INHALATION BID Discharge Medication List ALPRAZolam [Xanax] 0.5 mg PO BID PRN 07/14/17 [History] Aspirin 81 mg PO DAILY 07/14/17 [History] Atorvastatin [Lipitor] 80 mg PO HS 07/14/17 [History] Losartan Potassium [Cozaar] 25 mg PO DAILY 07/14/17 [History] Albuterol Nebulized [Ventolin Nebulized] 2.5 mg INHALATION BID 11/05/19 [History] Allopurinol [Zyloprim] 100 mg PO DAILY 11/05/19 [History] Glimepiride [Amaryl] 4 mg PO BID 11/05/19 [History] Meloxicam 15 mg PO DAILY 11/05/19 [History] Omeprazole [PriLOSEC] 20 mg PO DAILY 11/05/19 [History] buPROPion XL [Wellbutrin XL] 150 mg PO DAILY 11/05/19 [History] metFORMIN HCL ER [Glucophage Xr] 1,000 mg PO DAILY 11/05/19 [History] Follow up Appointment(s)/Referral(s): Valarie Coulter MD [STAFF PHYSICIAN] - 1 Week Ezequiel Dent MD [Primary Care Provider] - 1-2 days Activity/Diet/Wound Care/Special Instructions: Diet: Cardiac FU PCP within 3 days of DC. FU Cardiology within 1 week of DC. Take all medications as advised. Come back to the ED or call 911 for worsening chest pain, dizziness, shortness of breath, palpitations. Discharge Disposition: HOME SELF-CARE
--- NOTE | 2019-11-06 16:06 | P.CRDCN ---
History of Present Illness History of present illness: This is Lyn Santo PA-C dictating a consult on this patient Case discussed with Dr. Loyola and he agrees with the plan of care HPI Patient is a 79-year-old male with a past medical history significant for CAD status post stenting, hypertension, dyslipidemia, diabetes, COPD who was transferred here from [facility]. He is a patient of Dr. Coulter. In November 2018 he underwent coronary angiogram by Dr. Coulter showing mild to moderate triple-vessel coronary artery disease, 40-50% lesion in the LAD, 30-40% lesion in the diagonal, 20-30% lesion in the proximal circumflex, and 20-30% lesion in the RCA. The lesion in his LAD was not significant by FFR in the pa st. For the last week he has been having intermittent "light chest pain". He describes the pain as "irritation". It is made worse with a deep breath. It is nonexertional. He is short of breath at baseline due to his to his COPD but denies any worsening shortness of breath. Denies any associated nausea, diaphoresis, palpitations or dizziness. No syncope. He denies any recent illnesses, no recent fevers chills cough or congestion. He states that in the last day this pain got acutely worse. His works at [facility] and he asked her to bring him in her evaluation. I do not have the details available to me from [facility] however he was placed on a heparin drip and nitroglycerin drip and transferred here for further evaluation. His pain was relieved by the nitroglycerin. EKG upon arrival here shows sinus mechanism with nonspecific ST and T-wave abnormalities in the inferior and lateral leads, similar to what was seen on previous EKGs. Troponins negative 3. He underwent an echocardiogram showing LV systolic function normal, EF 60- 65%, moderate MR. Patient seen and examined resting in bed. He is currently pain-free. He does state that he had a lot of pain when the echocardiogram was performed, and pressing on the left side of his chest with the probe was a very painful. Denies any worsening shortness of breath. No dizziness, palpitations. ROS: No fevers, chills or rigors, no cough, phlegm or expectoration, no nausea, vomiting or diarrhea, no hematuria, dysuria, no musculoskeletal complaints, no strokes or seizures, no skin lesions. EXAMINATION: Patient is afebrile, pulse in the 80s, respirations 16, blood pressure 119/74, oxygen saturation 95% on room air Patient seen and examined resting comfortably in bed, in no acute distress Lungs mildly diminished bilaterally Patient is tender with palpation over the left ribs Heart is regular, systolic murmur audible at the apex No lower extremity edema No visible elevated JVD REVIEW OF LABS, ECG & MEDICAL DATA WBC 4.4, hemoglobin 11.8, platelets 162, potassium 4.2, BUN 23, creatinine 1.17 Troponin negative 3 IMPRESSION / ASSESSMENT: Intermittent atypical chest discomfort, nonexertional, pleuritic in nature, reproducible with tenderness to palpation and tenderness with the ultrasound probe during echocardiogram, no acute changes on EKG, cardiac enzymes negative History of CAD status post stenting with recent coronary angiogram in November 2018 showing no progression of coronary artery disease Hypertension Dyslipidemia Diabetes COPD Echocardiogram showing preserved LV systolic function PLAN: Stop heparin and nitro drip, have the patient ambulate in the hallway, continue to monitor the patient closely, if he remains chest pain-free he may be discharged in the next 24 hours on the condition that he will follow-up with Dr. Coulter in the office early next week for further evaluation and management Resume home cardiac medications including aspirin, atorvastatin, beta blockers, and losartan Past Medical History Past Medical History: Coronary Artery Disease (CAD), Cancer, Chest Pain / Angina, COPD, Diabetes Mellitus, Hyperlipidemia, Myocardial Infarction ([place]) Additional Past Medical History / Comment(s): Prostate cancer with hormone tx/radiation, L testicular cancer with radiation/surgery, NIDDM type II, neuropathy bilateral feet and starting in bilateral hands, vertigo, Gout. Last Myocardial Infarction Date:: 10/17/14 History of Any Multi-Drug Resistant Organisms: None Reported Past Surgical History: Heart Catheterization With Stent, Orthopedic Surgery Additional Past Surgical History / Comment(s): 2014 PCI with stent, 2017 cardiac cath treated medically, L orchiectomy, L rotator cuff repair, colonoscopies-3 in past year d/t multiple polyps-all bening, bilateral cataract removal. Past Anesthesia/Blood Transfusion Reactions: No Reported Reaction Date of Last Stent Placement:: 10/18/14 Past Psychological History: No Psychological Hx Reported Smoking Status: Former smoker Past Alcohol Use History: Occasional Past Drug Use History: None Reported - Past Family History Brother(s) Family Medical History: Cancer Son(s) Family Medical History: Cancer Additional Family Medical History / Comment(s): Lung Ca and Brain tumor Mother Family Medical History: Dementia Father Family Medical History: Cancer, Dementia Additional Family Medical History / Comment(s): Father had lung cancer. He in his 80s. He was a smoker. Medications and Allergies Home Medications Medication Instructions Recorded Confirmed Type ALPRAZolam [Xanax] 0.5 mg PO BID PRN 07/14/17 11/05/19 History Aspirin 81 mg PO DAILY 07/14/17 11/05/19 History Atorvastatin [Lipitor] 80 mg PO HS 07/14/17 11/05/19 History Losartan Potassium [Cozaar] 25 mg PO DAILY 07/14/17 11/05/19 History Albuterol Nebulized [Ventolin 2.5 mg INHALATION BID 11/05/19 11/05/19 History Nebulized] Allopurinol [Zyloprim] 100 mg PO DAILY 11/05/19 11/05/19 History Glimepiride [Amaryl] 4 mg PO BID 11/05/19 11/05/19 History Meloxicam 15 mg PO DAILY 11/05/19 11/05/19 History Omeprazole [PriLOSEC] 20 mg PO DAILY 11/05/19 11/05/19 History buPROPion XL [Wellbutrin Xl] 150 mg PO DAILY 11/05/19 11/05/19 History metFORMIN HCL ER [Glucophage Xr] 1,000 mg PO DAILY 11/05/19 11/05/19 History Allergies Allergy/AdvReac Type Severity Reaction Status Date / Time No Known Allergies Allergy Verified 12/02/18 13:50 Physical Exam Vitals: Vital Signs Temp Pulse Pulse Resp BP BP Pulse Ox 11/06/19 12:00 16 11/06/19 11:55 68 16 119/74 95 11/06/19 09:06 90 11/06/19 08:51 88 11/06/19 08:00 97.6 F 71 16 157/75 95 11/06/19 04:00 98.7 F 67 18 143/64 94 L 11/06/19 00:00 71 18 129/79 95 11/05/19 20:00 98.0 F 65 18 130/74 96 11/05/19 18:35 16 11/05/19 18:13 98.0 F 67 16 112/78 99 11/05/19 17:34 67 112/78 99 11/05/19 17:30 67 112/78 99 11/05/19 17:00 72 131/66 98 11/05/19 16:30 67 102/78 96 Intake and Output 11/06/19 11/06/19 11/06/19 06:59 14:59 22:59 Intake Total 103.733 301.946 Balance 103.733 301.946 Intake: Intake, IV Titration 103.733 61.946 Amount Heparin Sod,Pork in 0.45% 103.733 61.946 NaCl 25,000 unit In 0.45 % NaCl 1 250ml.bag @ 10 UNITS/KG/HR 9.979 mls/hr IV .Q24H [facility] Rx#: [id number] Oral 240 Other: Voiding Method Toilet Urinal # Voids 2 # Bowel Movements 1 Weight 97.1 kg 97.1 kg Results 11/05/19 10:27 11/06/19 06:00 Cardiac Enzymes 11/05/19 11/05/19 Range/Units 16:01 22:23 Troponin I <0.012 <0.012 (0.000-0.034) ng/mL Coagulation 11/05/19 11/06/19 11/06/19 Range/Units 19:06 01:40 12:10 APTT 32.0 H 42.4 H 43.0 H (22.0-30.0) sec Comprehensive Metabolic Panel 11/06/19 Range/Units 06:00 Sodium 140 (137-145) mmol/L Potassium 4.2 (3.5-5.1) mmol/L Chloride 109 H (98-107) mmol/L Carbon Dioxide 23 (22-30) mmol/L BUN 23 H (9-20) mg/dL Creatinine 1.17 (0.66-1.25) mg/dL Glucose 128 H (74-99) mg/dL Calcium 8.7 (8.4-10.2) mg/dL Current Medications Generic Name Dose Route Start Last Admin Trade Name Freq PRN Reason Stop Dose Admin Albuterol Sulfate 2.5 mg 11/06/19 08:02 11/06/19 08:49 Ventolin Nebulized INHALATION 2.5 mg RT-BID PRN Administration Shortness Of Breath Albuterol/Ipratropium 3 ml 11/05/19 23:23 Duoneb 0.5 Mg-3 Mg/3 Ml Soln INHALATION RT-QID PRN Shortness Of Breath Or Wheezing Aspirin 81 mg 11/06/19 09:00 11/06/19 08:49 Aspirin PO 81 mg DAILY [facility] Administration Atorvastatin Calcium 80 mg 11/05/19 21:00 11/05/19 21:24 Lipitor PO 80 mg HS [facility] Administration Bupropion HCl 150 mg 11/06/19 09:00 11/06/19 08:49 Wellbutrin Xl PO 150 mg DAILY [facility] Administration Losartan Potassium 25 mg 11/07/19 09:00 Cozaar PO DAILY [facility] Meloxicam 15 mg 11/06/19 09:00 11/06/19 08:49 Mobic PO 15 mg DAILY [facility] Administration Metoprolol Tartrate 12.5 mg 11/06/19 21:00 Lopressor PO BID [facility] Naloxone HCl 0.2 mg 11/05/19 11:33 Narcan IV Q2M PRN Opioid Reversal Pantoprazole Sodium 40 mg 11/06/19 07:30 11/06/19 06:25 Protonix PO Not Given -BRKFST [facility] Intake and Output 11/06/19 11/06/19 11/06/19 06:59 14:59 22:59 Intake Total 103.733 301.946 Balance 103.733 301.946 Intake: Intake, IV Titration 103.733 61.946 Amount Heparin Sod,Pork in 0.45% 103.733 61.946 NaCl 25,000 unit In 0.45 % NaCl 1 250ml.bag @ 10 UNITS/KG/HR 9.979 mls/hr IV .Q24H [facility] Rx#: [id number] Oral 240 Other: Voiding Method Toilet Urinal # Voids 2 # Bowel Movements 1 Weight 97.1 kg 97.1 kg Patient Weight 11/07/19 06:59 Weight 97.1 kg 11/05/19 10:27 11/06/19 06:00
[2019-11-06 17:20] LABS: Glucose,Whole Blood 124 mg/dL (75-99)
[2019-11-06 20:30] LABS: Glucose,Whole Blood 123 mg/dL (75-99)
[2019-11-06] MEDS: ATORVASTATIN 80 MG TAB PO SCH (20:56)
[2019-11-06] MEDS: METOPROLOL TARTRATE 12.5 MG TAB PO SCH (20:56)
[2019-11-07 04:09] VITALS: PULSE 98
[2019-11-07] MEDS: PANTOPRAZOLE 40 MG TABLET PO SCH (06:21)
[2019-11-07] MEDS: METOPROLOL TARTRATE 12.5 MG TAB PO SCH (08:42)
[2019-11-07] MEDS: MELOXICAM 7.5 MG TAB PO SCH (08:43)
[2019-11-07] MEDS: buPROPion XL 150 MG TAB.ER.24H PO SCH (08:43)
[2019-11-07] MEDS: ASPIRIN 81 MG PO SCH (08:43)
[2019-11-07] MEDS ORDERED: LOSARTAN 25 MG TAB PO SCH (09:00)
--- NOTE | 2019-11-07 09:30 | P.DS ---
Providers Date of admission: 11/05/19 11:33 Attending physician: Digna Fletcher MD Consults: 11/05/19 11:35 Consult Physician Urgent Consulting Provider: [facility] Consult Reason/Comments: acute chest pain, unstable angina Do you want consulting provider notified?: Yes Primary care physician: Ezeqiuel Dent MD Hospital Course: Admission diagnosis: Chest pain with history of CAD and stent placement Anemia COPD not in exacerbation Diabetes mellitus Hypertension Hospital Course: 79-year-old male with PMH of gout, diabetes mellitus, CAD post stent, hy pertension, COPD resents to the ED for chest pain. Patient initially presented to [facility] with acute onset chest pain. His works ever for [employer] and was getting ready to go to work which prompted him to go to the ED for evaluation of his chest pain. He reports that his chest pain is similar to the chest pain he felt when having his OR in 2015. In the ED, vital signs were stable. CBC showed hemoglobin of 11.8. Coagulation panel showed PTT of 69. CMP showed BUN 23, creatinine 1.33, glucose 143. Troponin was less than 0.0122 with EKG showing sinus rhythm and marketed sinus arrhythmia with T-wave abnormalities. Patient was started on heparin drip and admitted for chest pain, rule out acute coronary syndrome with cardiology on consultation. Patient's troponin was less than 0.0123 with EKG showing sinus rhythm and marketed sinus arrhythmia. Acute coronary syndrome was ruled out. Patient was initially on a heparin and nitroglycerin drip which was discontinued as patient was asymptomatic on day 2 of admission. He was continued on aspirin and Lipitor. Echocardiogram was obtained which showed EF 60-65% with mild concentric LVH. Patient was evaluated by cardiology Dr. Loyola and cleared for discharge. patient seen and examined on day of discharge, doing welll , denies any chest pain or trouble breathing, vital signs stable. he is walking the hallways with no limitations due to chest pain vital signs stable chest clear to auscultation , no wheezing , no tenderness to palpation Heart, normal S1 S2 regular rate and rhythm , no murmurs, no peripheral edema psych , alert oriented to time person and place. fair judgment abdomen soft lax, no tenderness, BS positive dishcarge home follow up with PCP and cardiology within 1 week Pertinent Studies: echo Patient Condition at Discharge: Stable Plan - Discharge Summary Discharge Rx Participant: No New Discharge Prescriptions: Continue ALPRAZolam [Xanax] 0.5 mg PO BID PRN PRN Reason: Anxiety Losartan Potassium [Cozaar] 25 mg PO DAILY Atorvastatin [Lipitor] 80 mg PO HS Aspirin 81 mg PO DAILY metFORMIN HCL ER [Glucophage Xr] 1,000 mg PO DAILY Omeprazole [PriLOSEC] 20 mg PO DAILY buPROPion XL [Wellbutrin XL] 150 mg PO DAILY Meloxicam 15 mg PO DAILY Glimepiride [Amaryl] 4 mg PO BID Allopurinol [Zyloprim] 100 mg PO DAILY Albuterol Nebulized [Ventolin Nebulized] 2.5 mg INHALATION BID Discharge Medication List ALPRAZolam [Xanax] 0.5 mg PO BID PRN 07/14/17 [History] Aspirin 81 mg PO DAILY 07/14/17 [History] Atorvastatin [Lipitor] 80 mg PO HS 07/14/17 [History] Losartan Potassium [Cozaar] 25 mg PO DAILY 07/14/17 [History] Albuterol Nebulized [Ventolin Nebulized] 2.5 mg INHALATION BID 11/05/19 [History] Allopurinol [Zyloprim] 100 mg PO DAILY 11/05/19 [History] Glimepiride [Amaryl] 4 mg PO BID 11/05/19 [History] Meloxicam 15 mg PO DAILY 11/05/19 [History] Omeprazole [PriLOSEC] 20 mg PO DAILY 11/05/19 [History] buPROPion XL [Wellbutrin XL] 150 mg PO DAILY 11/05/19 [History] metFORMIN HCL ER [Glucophage Xr] 1,000 mg PO DAILY 11/05/19 [History] Follow up Appointment(s)/Referral(s): Valarie Coulter MD [STAFF PHYSICIAN] - 11/16/21 3:00 pm Ezequiel Dent MD [Primary Care Provider] - 1-2 days Activity/Diet/Wound Care/Special Instructions: Diet: Cardiac FU PCP within 3 days of DC. FU Cardiology within 1 week of DC. Take all medications as advised. Come back to the ED or call 911 for worsening chest pain, dizziness, shortness of breath, palpitations. Discharge Disposition: HOME SELF-CARE
[2019-11-07 11:36] VITALS: BP 162/76; RESP 12; TEMP 97.8
--- NOTE | 2019-11-07 13:29 | P.PN ---
Subjective Progress Note Date: 11/07/19 the patient is a 79-year-old male who follows with Dr. Coulter in the office. He is evaluated this morning sitting up in the chair. he states he is feeling well and is looking forward to going home. He denies any exertional chest pain, chest pressure, dizziness, or vertigo.he does have chronic shortness of breath, however this is his baseline.he does have some tenderness to palpation along left chest wall, echocardiogram revealed normal LV function with moderate mitral regurgitation and mild tricuspid regurgitation. Aortic root measuring 4.0 Vital signs stable overnight. SpO2 greater than 90 on room air. GENERAL: Well-appearing obese male, well-nourished and in no acute distress. NECK: Supple without JVD or thyromegaly. LUNGS: Breath sounds diminished bilaterally. Respiration equal and unlabored. No wheezes, rales or rhonchi. HEART: Regular rate and rhythm.systolic murmur at the apex. No rubs or gallops. S1 and S2 heard. EXTREMITIES: Normal range of motion, no edema. No clubbing or cyanosis. Peripheral pulses intact and strong. Impression: #1 chest discomfort, nonexertional #2 shortness of breath, underlying COPD #3 history of coronary artery disease #4 hypertension #5 dyslipidemia plan: Patient is cleared to be discharged home from the cardiac standpoint. Patient will follow-up with Dr. Coulter in the office. Objective - Vital Signs Vital signs: Vital Signs Temp 97.8 F 11/07/19 08:00 Pulse 98 11/07/19 08:00 Resp 12 11/07/19 08:00 BP 162/76 11/07/19 08:00 Pulse Ox 93 L 11/07/19 08:00 Intake & Output 11/06/19 11/07/19 11/07/19 18:59 06:59 18:59 Intake Total 541.946 240 Balance 541.946 240 Weight 97.1 kg 97.1 kg Intake: Intake, IV Titration 61.946 Amount Heparin Sod,Pork in 0.45% 61.946 NaCl 25,000 unit In 0.45 % NaCl 1 250ml.bag @ 10 UNITS/KG/HR 9.979 mls/hr IV .Q24H [facility] Rx#: [id number] Oral 480 240 Other: Voiding Method Toilet Toilet Toilet Urinal # Voids 2 2 # Bowel Movements 1 - Labs CBC & Chem 7: 11/05/19 10:27 11/06/19 06:00 Labs: Abnormal Lab Results - Last 24 Hours (Table) 11/06/19 11/06/19 Range/Units 17:12 20:27 POC Glucose (mg/dL) 124 H 123 H (75-99) mg/dL
== END 2019-11-07 12:15 | disposition home or self-care (01) ==
LOC: EC 09:50 → 3SCARD 11:33
PROVIDERS: ADMIT Family Medicine; ATTEND Family Medicine
DX: R07.89 Other chest pain (principal); N17.9 Acute kidney failure, unspecified; I25.10 Atherosclerotic heart disease of native coronary artery without angina pectoris; Z85.46 Personal history of malignant neoplasm of prostate; Z85.47 Personal history of malignant neoplasm of testis; J44.9 Chronic obstructive pulmonary disease, unspecified; I10 Essential (primary) hypertension; E11.40 Type 2 diabetes mellitus with diabetic neuropathy, unspecified; E78.5 Hyperlipidemia, unspecified; Z87.891 Personal history of nicotine dependence; I25.2 Old myocardial infarction; D64.9 Anemia, unspecified; I08.3 Combined rheumatic disorders of mitral, aortic and tricuspid valves; Z79.82 Long term (current) use of aspirin; Z79.84 Long term (current) use of oral hypoglycemic drugs; Z79.899 Other long term (current) drug therapy; Z95.5 Presence of coronary angioplasty implant and graft; M10.9 Gout, unspecified; Z92.3 Personal history of irradiation; Z90.79 Acquired absence of other genital organ(s); Z80.1 Family history of malignant neoplasm of trachea, bronchus and lung
CPT/HCPCS: 96366 ×3; 96368 ×2; 93005 ×2; 96365; 99285; 36415; 94640 ×2; 93306; 80053; 80048; 84484; 85025; 85610; 85730 ×2; G0378 ×3; J1644 ×2